=== PATIENT | male | born 1950 | race Caucasian/White ===

== ENCOUNTER → 2016-02-28 | Outpatient (CLI) | payer OTHER, MEDICARE ==
[~2016-02-28] MED LIST: CLX20 PO; SIMV20TA2 PO
--- NOTE | 2016-02-28 18:41 | EXERCISE STRESS ECHO ---
*NOTICE TO RECEIVING LIBERTARIAN AGENCY This information is strictly Confidential and protected under [place] law. [place] law prohibits you from making any further disclosure of this information unless further disclosure is expressly permitted by the written consent of the person to whom it pertains or is authorized by law. A general authorization for the release of medical or other information is not sufficient for this purpose. Hospital accepts no responsibility if the information is made available to any other person, INCLUDING THE PATIENT. Interpretation Summary * Name: ELIZABETH JACOME Study Date: 02/28/2016 10:06 AM BP: 150/104 mmHg * Patient Location: [facility] HR: 67 * : 1950 (M/d/yyyy) Gender: Male Height: 63 in * Age: 65 yrs Ethnicity: CA Weight: 160 lb * Ordering Physician: Kadeem Bell * Referring Physician: Kadeem Bell * Performed By: Suri Marcano RCS * * Reason For Study: Abnormal EKG, Recurrent Left Side Chest Pain * BSA: 1.8 m2 * -- Conclusions -- * 1. Negative exercise stress echo for ischemia at 89% MPHR. * 2. Negative stress ECG for ischemia. * 3. Above average functional capacity. Exercised 7:54 min, achieving 9.9 METS. No exercise induced chest pain. * 4. Normal resting biventricular size and systolic function. Mild concentric LVH. Grade II diastolic dysfunction. * 5. Bicuspid aortic valve with mild-moderate (PV 2.7 m/s, MG 15.7mmHg, EH 1.4 cm2). No AI. Normal aortic root, ascending aorta. * 6. Compared with prior study on 01/31/2014: now mild to moderate. Procedure Details * ECHOEX, CPT #58848 * ECHO COLOR FLOW, CPT #01990 * ECHO DOPPLER, CPT #39102 Left Ventricular Findings with Stress * This was essentially a normal study. Left Ventricle * The left ventricle is grossly normal size. * There is mild concentric left ventricular hypertrophy. * Ejection Fraction = 55-60%. * The left ventricular ejection fraction increases normally with stress. The left ventricular end-systolic cavity size reduces post-stress (normal response). The left ventricular wall motion with stress is normal. * No regional wall motion abnormalities noted. Right Ventricle * The right ventricle is grossly normal size. * The right ventricular systolic function is normal. Atria * The left atrial size is normal. * Right atrial size is normal. * No ASD detected; PFO is not assessed. Mitral Valve * The mitral valve is grossly normal. * There is mild mitral annular calcification. * There is no mitral valve stenosis. * Significant mitral regurgitation is absent. Tricuspid Valve * The tricuspid valve is not well visualized. * Significant tricuspid regurgitation is absent. Aortic Valve * The aortic valve is bicuspid. * AoV mildly calcified, thickened * Mild to moderate valvular aortic stenosis. * AoV PV 2.7 m/s, MG 15.7mmHg, EH 1.4 cm2 * There is no significant aortic regurgitation. Pulmonic Valve * The pulmonic valve is not well visualized. * Trace pulmonic valvular regurgitation. Great Vessels * The aortic root and proximal ascending aorta are normal sized. Pericardium * There is no pericardial effusion. Stress Parameters * Normal baseline electrocardiogram. * Stress ECG: No ST changes. Isolated premature ventricular contractions were present. * Stress ECG: No ST changes. No arrhythmias. * The stress portion of this study was personally supervised by the undersigned interpreting physician. * Rest heart rate was '67' BPM. * Rest blood pressure was '150/104' * Maximum heart rate achieved was 139 bpm. * Maximum heart rate was 89 % of maximum age-predicted heart rate. * Maximum blood pressure was '185/115' * Total exercise time was '7:54' * Maximum exercise MET level achieved was '9.9' METS * Maximum treadmill speed was '3.4' miles per hour. * Maximum treadmill elevation was '14'% grade. * Exercise was terminated due to 'fatigue after achieving target heart rate' Left Ventricular Findings with Stress * The study was technically adequate. Left Ventricular Diastolic Function * Diastolic dysfunction, Grade II (pseudonormalization pattern). MMode 2D Measurements and Calculations IVSd 1.2 cm IVSs 1.6 cm LVIDd 4.8 cm LVIDs 3.4 cm LVPWd 1.2 cm LVPWs 1.6 cm IVS/LVPW 0.98 FS 29.6 % EDV(Teich) 110.0 ml ESV(Teich) 47.9 ml EF(Teich) 56.4 % EDV(cubed) 113.8 ml ESV(cubed) 39.8 ml EF(cubed) 65.0 % % IVS thick 30.4 % % LVPW thick 31.2 % LV mass(C)d 225.1 grams LV mass(C)dI 128.0 grams/m\S\2 LV mass(C)s 204.6 grams LV mass(C)sI 116.3 grams/m\S\2 CO(Teich) 3.8 l/min CI(Teich) 2.2 l/min/m\S\2 SV(Teich) 62.0 ml SI(Teich) 35.3 ml/m\S\2 CO(cubed) 4.6 l/min CI(cubed) 2.6 l/min/m\S\2 SV(cubed) 74.0 ml SI(cubed) 42.1 ml/m\S\2 Ao root diam 3.6 cm Ao root area 10.4 cm\S\2 ACS 1.6 cm LA dimension 3.5 cm LA/Ao 0.96 LVOT diam 2.5 cm LVOT area 5.0 cm\S\2 LVAd ap4 26.1 cm\S\2 LVLd ap4 7.2 cm EDV(MOD-sp4) 80.0 ml LVAs ap4 16.4 cm\S\2 LVLs ap4 6.4 cm ESV(MOD-sp4) 36.0 ml EF(MOD-sp4) 55.0 % LVAd ap2 26.3 cm\S\2 LVLd ap2 8.3 cm EDV(MOD-sp2) 69.0 ml LVAs ap2 14.4 cm\S\2 LVLs ap2 6.4 cm ESV(MOD-sp2) 28.0 ml EF(MOD-sp2) 59.4 % CO(MOD-sp4) 2.7 l/min CI(MOD-sp4) 1.6 l/min/m\S\2 SV(MOD-sp4) 44.0 ml SI(MOD-sp4) 25.0 ml/m\S\2 CO(MOD-sp2) 2.5 l/min CI(MOD-sp2) 1.4 l/min/m\S\2 SV(MOD-sp2) 41.0 ml SI(MOD-sp2) 23.3 ml/m\S\2 Doppler Measurements and Calculations MV E max jarred 86.9 cm/sec MV A max jarred 67.6 cm/sec MV E/A 1.3 MV P1/2t max jarred 90.8 cm/sec MV P1/2t 102.6 msec MVA(P1/2t) 2.1 cm\S\2 MV dec slope 259.2 cm/sec\S\2 MV dec time 0.22 sec Ao V2 max 269.7 cm/sec Ao max PG 29.1 mmHg Ao max PG (full) 27.2 mmHg Ao V2 mean 184.8 cm/sec Ao mean PG 15.7 mmHg Ao mean PG (full) 14.6 mmHg Ao V2 VTI 61.2 cm EH(I,A) 1.4 cm\S\2 EH(I,D) 1.4 cm\S\2 EH(V,A) 1.3 cm\S\2 EH(V,D) 1.3 cm\S\2 LV V1 max PG 1.9 mmHg LV V1 mean PG 1.1 mmHg LV V1 max 69.4 cm/sec LV V1 mean 50.2 cm/sec LV V1 VTI 16.8 cm SV(Ao) 639.4 ml SI(Ao) 363.5 ml/m\S\2 SV(LVOT) 83.3 ml SI(LVOT) 47.4 ml/m\S\2 PA V2 max 175.1 cm/sec PA max PG 12.5 mmHg PI max jarred 219.9 cm/sec PI max PG 19.3 mmHg PI dec slope 194.2 cm/sec\S\2 PI P1/2t 331.6 msec
== END | disposition home or self-care (01) ==
LOC: C.CPL 09:28
PROVIDERS: ATTEND Internal Medicine
DX: R07.9 Chest pain, unspecified (principal); Q23.1 Congenital insufficiency of aortic valve; R94.31 Abnormal electrocardiogram [ECG] [EKG]

== ENCOUNTER → 2016-06-19 | Outpatient (CLI) | payer OTHER, MEDICARE ==
[2016-06-19 15:14] LABS: ALB/GLOB RATIO 1.3 (0.9-2); ALKALINE PHOSPHATASE 92 U/L (45-117); ALT/SGPT 27 U/L (12-78); AST/SGOT 23 U/L (15-37); BLOOD UREA NITROGEN 15 mg/dl (7-18); BUN/CREATININE RATIO 15.4 (10-20); CALCIUM 8.9 mg/dl (8.5-10.1); CARBON DIOXIDE 25 mmol/L (21-32); CHLORIDE 108 mmol/L (98-107); CHOLESTEROL 173 mg/dl (0-200); CHOLESTEROL/HDL RATIO 3.4; GLUCOSE 111 mg/dl (70-99); HDL CHOLESTEROL 51 mg/dl; POTASSIUM 3.5 mmol/L (3.5-5.1); SODIUM 141 mmol/L (136-145); TRIGLYCERIDES 89 mg/dl (0-150); VERY LOW DENSITY LIPOPROT CALC 18 mg/dl
== END | disposition home or self-care (01) ==
LOC: C.LABSPEC 12:34
PROVIDERS: ATTEND Internal Medicine
DX: I25.10 Atherosclerotic heart disease of native coronary artery without angina pectoris (principal); E78.5 Hyperlipidemia, unspecified

== ENCOUNTER → 2016-12-23 | Outpatient (CLI) | payer OTHER, MEDICARE ==
[2016-12-23 13:40] LABS: BLOOD UREA NITROGEN 16 mg/dl (7-18); BUN/CREATININE RATIO 16.3 (10-20); CALCIUM 9.1 mg/dl (8.5-10.1); CARBON DIOXIDE 28 mmol/L (21-32); CHLORIDE 103 mmol/L (98-107); CHOLESTEROL 177 mg/dl (0-200); CREATININE 0.98 mg/dl (0.60-1.40); GLUCOSE 109 mg/dl (70-99); POTASSIUM 4.1 mmol/L (3.5-5.1); SODIUM 138 mmol/L (136-145); TRIGLYCERIDES 74 mg/dl (0-150); VERY LOW DENSITY LIPOPROT CALC 15 mg/dl
[2016-12-23 13:43] LABS: CHOLESTEROL/HDL RATIO 3.2; HDL CHOLESTEROL 55 mg/dl
[2016-12-23 13:54] LABS: ESTIMATED AVERAGE GLUCOSE 94 mg/dl; HA1C FLAG Normal (Normal)
== END | disposition home or self-care (01) ==
LOC: C.LABSPEC 12:05
PROVIDERS: ATTEND Internal Medicine
DX: R73.9 Hyperglycemia, unspecified (principal); I10 Essential (primary) hypertension; E78.5 Hyperlipidemia, unspecified

== ENCOUNTER → 2016-12-24 | Outpatient (CLI) | payer OTHER, MEDICARE | END | disposition home or self-care (01) | LOC: C.LABSPEC 12:24 | PROVIDERS: ATTEND Internal Medicine | DX: Z12.11 Encounter for screening for malignant neoplasm of colon (principal) ==

== ENCOUNTER → 2017-06-19 | Outpatient (CLI) | payer OTHER, MEDICARE ==
[~2017-06-19] MED LIST changes: +OPTIRAY 320 IV PRN
--- NOTE | 2017-06-19 12:02 | DIAGNOSTIC IMAGING REPORT ---
CHEST ANGIO WITH CONTRAST CLINICAL HISTORY: X aneurysm TECHNIQUE: Transaxial acquisition with multi axial reformatted images COMPARISON STUDY: None FINDINGS: Thoracic aorta is normal in course and caliber. There is a trace amount of abscess chronic change. There is no evidence for aneurysm or dissection. Pulmonary vasculature enhances appropriately. Lungs are considered clear. IMPRESSION: Negative study of the thoracic aorta. Lungs are clear. The above report was generated using voice recognition software. It may contain grammatical, syntax or spelling errors. Electronically signed by: Delon Clark M.D. 06/19/2017 12:00 PM Dictated Date/Time: 06/19/2017 11:56 AM
== END | disposition home or self-care (01) ==
LOC: C.CTS 11:26
PROVIDERS: ATTEND Internal Medicine Cardiovascular Disease
DX: Q23.1 Congenital insufficiency of aortic valve (principal)

== ENCOUNTER → 2017-06-20 | Outpatient (CLI) | payer OTHER, MEDICARE ==
[~2017-06-20] MED LIST changes: -OPTIRAY 320 IV PRN
[2017-06-20 12:30] LABS: HEMATOCRIT 46.7 % (42-52); HEMOGLOBIN 16.8 g/dL (14.0-18.0); MEAN CELL VOLUME 85.8 fL (80-100); MEAN CORPUSCULAR HEMOGLOBIN 30.9 pg (25-34); MEAN PLATELET VOLUME 11.3 fL (7.4-10.4); PLATELET COUNT 201 K/uL (130-400); RED CELL DISTRIBUTION WIDTH SD 40.4 fL (36.4-46.3); WHITE BLOOD COUNT 7.86 K/uL (4.8-10.8)
[2017-06-20 13:11] LABS: BLOOD UREA NITROGEN 14 mg/dl (7-18); CALCIUM 8.5 mg/dl (8.5-10.1); CARBON DIOXIDE 30 mmol/L (21-32); CREATININE 1.04 mg/dl (0.60-1.40); GLUCOSE 88 mg/dl (70-99); POTASSIUM 3.9 mmol/L (3.5-5.1); SODIUM 140 mmol/L (136-145)
== END | disposition home or self-care (01) ==
LOC: C.LAB1850 11:28
PROVIDERS: ATTEND Internal Medicine Cardiovascular Disease
DX: I35.0 Nonrheumatic aortic (valve) stenosis (principal); E78.5 Hyperlipidemia, unspecified; R06.09 Other forms of dyspnea; Q23.1 Congenital insufficiency of aortic valve; I20.9 Angina pectoris, unspecified; I10 Essential (primary) hypertension

== ENCOUNTER → 2017-06-25 | Day surgery (SDC) | payer OTHER, MEDICARE ==
[~2017-06-25] VITALS: Ht 160 cm; Wt 75.0 kg
[~2017-06-25] MED LIST changes: +ACETAMINOPHEN 325 MG TAB PO PRN; +ALFA250T; +AMLO2.5T PO; +ASPCH81X PO; +ASPIRIN 325 MG ECTAB PO ONE; +DIPH1TAB98; +FENTANYL CITRATE INJ 50 MCG/1 ML 2 ML VIAL ONE; +HEPARIN SOD (PORCINE) 1000 UNIT/ML 10 ML VIAL ONE; +HYDR25TA4 PO; +LPT40 PO; +METO50TA8 PO; +METOPROLOL SUCC 25MG EXT REL TAB ONE; +MIDAZOLAM HCL 1 MG/ML 2ML VIAL ONE; +NITROGLYCERIN/D5W 100MCG/ML 20ML SYR ONE; +NTRGSL/4 UT; +NiCARDipine HCL INJ 2.5 MG/ML 10 ML AMP ONE; +ONDANSETRON INJ 2 MG/ML 2 ML VIAL IV PRN; +SODIUM CHLORIDE 0.9% 1000ML 1,000 ML IV SCH; +SODIUM CHLORIDE 0.9% 1000ML 250 ML IV PRN
[2017-06-25 07:47] VITALS: BP 190/100; PULSE 72; TEMP 37; O2SAT 96; Ht 160 cm; Wt 75.0 kg
--- NOTE | 2017-06-25 08:00 | History & Physical Bridge Note ---
H&P Re-Evaluation Bridge Note: I have examined the patient, reviewed the History & Physical and in the interval since the performance of the History & Physical I have noted the following changes of clinical significance: No changes noted
--- NOTE | 2017-06-25 08:06 | Pre Sedation Assessment ---
Pre Sedation Assessment General Date of Sedation: June 25, 2017. Vital Signs Past 12 Hours Date Time Temp Pulse Resp B/P (MAP) Pulse Ox O2 Delivery O2 Flow Rate FiO2 06/25/18 07:47 37.0 72 16 190/100 (130) 96 Room Air Review Cardiovascular: regular rate, rhythm, + systolic murmur Lungs: lungs clear Pre-Sedation Airway Assessment Smoking Status: Never Smoker Hx of Sleep Apnea: No Short Thick Neck: No Oral Cavity: WNL Mallampati Classification: Class III ASA Classification: Class III NPO Status Date of Last Intake of Fluids: June 24, 2017 Time of Last Intake of Fluids: 20:00 Date of Last Intake of Solids: June 24, 2017 Time of Last Intake of Solids: 20:00 Procedure Planning Contraindications for Sedation: None Current Medications Reviewed: Yes Notes The planned sedation has been discussed with the patient. Informed Consent was obtained. I have identified the patient, determined the appropriateness of sedation and have assessed the patient immediately prior to the procedure. All medicine(s) and interventions are by my order.
--- NOTE | 2017-06-25 09:25 | Post Sedation Assessment ---
Post Sedation Assessment General Date of Sedation June 25, 2017. Vital Signs: Vital Signs Past 12 Hours Date Time Temp Pulse Resp B/P (MAP) Pulse Ox O2 Delivery O2 Flow Rate FiO2 06/25/ 07:47 37.0 72 16 190/100 (130) 96 Room Air Post Procedure Recovery Score Activity: (2) Moves 4 extremities * Respiration: (2) Deep breath/cough Circulation: (2) +/-20% PreAnes Value Consciousness: (2) Fully Awake Oxygen Saturation: (2) > 92% On Room Air Post Anesthesia Score: 10 Discharge Sedation Level of Care: Fast Track Phase II Post Sedation Plan On clinical assessment, the patient appears to have tolerated the sedation without complications. Patient is recovering as anticipated. Patient will continue to be monitored by nursing and may be discharged when sedation discharge criteria are met per below protocol. Upon Completions of procedure and additional 15 minutes continue every 5 minute vital signs and the P.A.R. score; then discharge to a Phase I or Fast Track to Phase II per the following guidelines: * Discharge Patient to appropriate Phase II area if PAR is 8 or greater or return to pre- procedure baseline. The post - procedure orders will be as directed. * If PAR score is less than 8 or not return to pre-procedure baseline then patient will follow Phase I monitoring till PAR is reached for Phase II. The Phase I may be done in procedure room or may call to secure a Phase I area. * If naloxone or flumazenil are used for reversal, hold in Phase I for an additional 60 -120 minutes before discharge to Phase II. Please call the Sedation Physician to re-evaluate and complete post-note for discharge to Phase II area. Do NOT discharge from procedure sedation or Phase 1 until post- sedation evaluation note is complete by procedure /sedation MD Sedation Discharge Instructions to be given to the patient at discharge to home.
--- NOTE | 2017-06-25 09:25 | Cardiac Catheterization ---
Procedure Note Procedure Date June 25, 2017. Pre-Procedure Diagnosis Angina AUC Score 7 Post-Procedure Diagnosis Mild CAD, Elevated Intracardiac Pressures Procedure(s) Performed Coronary Angiography, Left Heart Cath Network Support Analyst Dr. Peraza Embryology Professor(s) Contino Estimated Blood Loss < 25 ml Medication(s) Fentanyl, Heparin, Nicardipine, Versed, Lidocaine 1% Summary of Findings Coronary angiography: 1. Left main coronary artery: No significant CAD noted. 2. Left anterior descending: The LAD is a large caliber vessel that wraps around the apex. Mid LAD 20%. Small to medium caliber D1 (< 2 mm vessel) with ostial narrowing of 50%. Very small caliber D2. Small caliber D3 the. 3. Circumflex: The circumflex is a medium to large caliber vessel. It gives rise to a very large caliber OM1. Small caliber OM2. Small caliber OM3. No significant CAD noted within the circumflex system. 4. Right coronary artery: The RCA is a large caliber, dominant vessel. Distal luminal irregularities, approximately 20%. It gives rise to a a large caliber PDA and a medium caliber PL without significant CAD. Left heart catheterization: 1. Left ventriculography was not performed. 2. Elevated LVEDP; 27mmHg. 3. Peak to peak transvalvular aortic gradient was 0mmHg, however echo demonstrated mild to moderate aortic stenosis. Sedation start time: 8:21 a.m. Sedation end time: 8:40 a.m. Procedural details: 1. Coronary angiography was performed via the right radial artery with 6 Wallisian JL 3.5 diagnostic catheter and 6 Wallisian JR4 diagnostic catheter to engage the LMCA and RCA, respectively. Impression: 1. 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 2. Elevated LVEDP (27 mmHg). 3. No significant aortic stenosis suggested on transvalvular peak to peak aortic gradient. Plan: 1. Consider diuretic. 2. Optimize blood pressure. 3. Risk factor modification. Hemodynamics Rest Ao: 155/82 Final Ao: 170/82 LV: 161/14/27 Recommendations Medical therapy and/or Counseling Specimens None Radiation Exposure (mGy) 1211 mGy. Fluoro time 5.8 min. Contrast (mls) 40 ml optivol Procedural Complication(s) None Disposition Traveling Sales Representative Holding/Recovery ACC Data Cardiac Status Clinical evaluation leading to the procedure CAD Presntation: Stable angina Anginal Classification: CCS III Heart Failure: No Cardiogenic Shock w/in 24Hrs: No Cardiac Arrest w/in 24Hrs: No Imaging studies past 6 months: Yes (echo) Stress studies past 6 months: No Standard Exercise Stress Test: No Stress Echocardiogram: No Stress Testing w/SPECT MPI: No Cardiac CTA: No Coronary Anatomy Dominant: Right Left Main (% Stenosis): Normal LAD (% Stenosis): Mid (20%) D1 (% Stenosis): Ostial (50%) D2 (% Stenosis): Normal D3 (% Stenosis): Normal Circumflex (% Stenosis): Normal OM1 (% Stenosis): Normal OM2 (% Stenosis): Normal OM3 (% Stenosis): Normal RCA (% Stenosis): Distal (20%) R PDA (% Stenosis): Normal R PL1 (% Stenosis): Normal Left Ventricular Angiography EF (%): n/a Diagnostic Physician's Name: Virgilio Peraza MD Status: Elective Closure Device Percutaneous Entry Location: Radial Closure Device: Radial Band Recommendations: Medical therapy and/or Counseling
--- NOTE | 2017-06-25 09:44 | Discharge Instructions ---
Discharge Instructions Date of Service June 25, 2017. Visit Reason for Visit: Cardiac catheterization to evaluate shortness of breath and chest pain. Discharge Discharge Diagnosis / Problem: 1. Nonobstructive coronary artery disease. Discharge Goals Goal(s): Diagnostic testing Activity Recommendations Activity Limitations: per Instructions/Follow-up section Anesthesia . Post Anesthesia Instructions: If you have had General Anesthesia or IV Sedation: * Do not drive today. * Resume driving when surgeon permits. * Do not make important decisions or sign legal documents today. * Call surgeon for: 1. Temperature elevations greater than 101 degrees F. 2. Uncontrollable pain. 3. Excessive bleeding. 4. Persistent nausea and vomiting. 5. Medication intolerance (nausea, vomiting or rash). * For nausea and vomiting use only clear liquids such as: tea, soda, bouillon until nausea subsides, then gradually increase diet as tolerated. * If you have any concerns or questions, call your surgeon's office. If physician is unavailable and it is an emergency, call 911 or go to the nearest emergency room. . Instructions / Follow-Up Instructions / Follow-Up Please have labs done in 5-7 days. Follow up with Dr. Peraza in approximately 1 month. His office will contact you with time/date of appointment. ACTIVITY RECOMMENDATIONS: Excess manipulation of the wrist should be avoided for the next 24-48 hours. * No lifting over 2 pounds (approximately a 1/2 gallon of milk) with the utilized arm for 24 hours. * No strenuous activity such as bowling or tennis for 3 days. * Keep the site of the procedure covered with a bandage for 24 hours. *You may shower the day after the procedure. Do not take a tub bath or submerge the puncture site in water for the next 3 days. *Do not operate any motorized equipment for 3 days. SPECIAL CARE INSTRUCTIONS: The site may be slightly bruised and sore following your procedure. Should any of the following occur, contact the Dr. who performed your procedure. 1. Redness/inflammation, swelling, chills, or fever, or colored drainage at procedure site within 3-7 days after your procedure. 2. Coldness, discoloration, ongoing numbness, severe pain, or swelling. Expect mild tingling of hand and tenderness at the puncture site for up to three days. If this persists beyond three days, or other symptoms develop, notify the Dr. who performed your procedure. BLEEDING: If the procedure site on your wrist begins to bleed, do not panic 1. Place 1 or 2 fingers firmly just slightly above the insertion site to stop the bleeding. You may be able to feel your pulse as you hold pressure. 2. Lift your finger after 5 minutes to see if the bleeding has stopped. 3. Once the bleeding has stopped, gently wipe the wrist area clean with a bandage. * If the bleeding from your wrist does not stop after 10 minutes, or if there is a large amount of bleeding or spurting, call 911 ([address] drive yourself to the hospital). SKIN IRRITATION: * You may experience some redness and/or swelling in the area where radiation was administered. If any skin irritation occurs, please contact your family physician. FOLLOW UP VISIT: Keep any scheduled doctor appointments. Diet Recommendations Recommended Home Diet: low sodium Procedures Procedures Performed: 1. Coronary angiography and left heart catheterization Pending Studies Studies pending at discharge: no Medical Emergencies . Who to Call and When: Medical Emergencies: If at any time you feel your situation is an emergency, please call 911 immediately. . Non-Emergent Contact Non-Emergency issues call your: [facility] . . "Provider Documentation" section prepared by Virgilio Miranda. .
[2017-06-25 11:20] VITALS: BP 122/60; PULSE 66; O2SAT 98
== END | disposition home or self-care (01) ==
LOC: C.CATH 07:39
PROVIDERS: ATTEND Internal Medicine Cardiovascular Disease
DX: I25.119 Atherosclerotic heart disease of native coronary artery with unspecified angina pectoris (principal); R06.09 Other forms of dyspnea; Q23.1 Congenital insufficiency of aortic valve; F39 Unspecified mood [affective] disorder; E78.5 Hyperlipidemia, unspecified; I10 Essential (primary) hypertension; Z79.82 Long term (current) use of aspirin; Z87.891 Personal history of nicotine dependence

== ENCOUNTER → 2017-06-30 | Outpatient (CLI) | payer OTHER, MEDICARE ==
[~2017-06-30] MED LIST changes: -ACETAMINOPHEN 325 MG TAB PO PRN; -ASPIRIN 325 MG ECTAB PO ONE; -CLX20 PO; -FENTANYL CITRATE INJ 50 MCG/1 ML 2 ML VIAL ONE; -HEPARIN SOD (PORCINE) 1000 UNIT/ML 10 ML VIAL ONE; -METOPROLOL SUCC 25MG EXT REL TAB ONE; -MIDAZOLAM HCL 1 MG/ML 2ML VIAL ONE; -NITROGLYCERIN/D5W 100MCG/ML 20ML SYR ONE; -NiCARDipine HCL INJ 2.5 MG/ML 10 ML AMP ONE; -ONDANSETRON INJ 2 MG/ML 2 ML VIAL IV PRN; -SIMV20TA2 PO; -SODIUM CHLORIDE 0.9% 1000ML 1,000 ML IV SCH; -SODIUM CHLORIDE 0.9% 1000ML 250 ML IV PRN
[2017-06-30 11:37] LABS: BLOOD UREA NITROGEN 16 mg/dl (7-18); CALCIUM 8.9 mg/dl (8.5-10.1); CARBON DIOXIDE 28 mmol/L (21-32); CREATININE 1.19 mg/dl (0.60-1.40); GLUCOSE 100 mg/dl (70-99); POTASSIUM 3.9 mmol/L (3.5-5.1); SODIUM 139 mmol/L (136-145)
== END | disposition home or self-care (01) ==
LOC: C.LAB1850 09:01
PROVIDERS: ATTEND Internal Medicine Cardiovascular Disease
DX: E78.5 Hyperlipidemia, unspecified (principal); R06.09 Other forms of dyspnea; Q23.1 Congenital insufficiency of aortic valve; I20.9 Angina pectoris, unspecified; I10 Essential (primary) hypertension

== ENCOUNTER → 2017-07-03 | Outpatient (CLI) | payer OTHER, MEDICARE | END | disposition home or self-care (01) | LOC: C.RC 10:03 | PROVIDERS: ATTEND Internal Medicine | DX: R06.02 Shortness of breath (principal); R06.2 Wheezing; Z77.090 Contact with and (suspected) exposure to asbestos; Z87.891 Personal history of nicotine dependence ==

== ENCOUNTER 2022-06-11 18:15 | Observation (INO) ==
--- NOTE | 2022-06-11 18:35 | Emergency Department Note ---
Impression & Plan Chest pain, Elevated troponin I level ED Provider Note NAME: ELIZABETH JACOME AGE: 71 SEX: M : 1950 ARRIVES VIA: Ambulance INFORMANT: Patient, EMS personnel ED PROVIDER(S): Vasu Oliva DO CHIEF COMPLAINT: Back pain HPI: The patient is a 71-year-old male who presented to the emergency department by ambulance for an evaluation of back pain. The patient has taken his own nitroglycerin for this back pain. He thought it could be related to his heart. The patient has a history of aortic valve replacement because of bicuspid aortic valve. He had a heart catheterization done at that time. He has no history of stenting but has nitroglycerin for diagnosed coronary artery disease. He took his own nitroglycerin prior to arrival. He was given aspirin 324 by the prehospital personnel. I did receive a prehospital notification about this patient. To review an EKG. The patient at this time states his pain is significantly improved. He was given 1 dose of nitroglycerin because of recurrent pain. He states the pain is in his upper back. He goes to his left shoulder. He denies having any nausea or vomiting. He denies having any abdominal pain or lower extremity pain at this time. ROS: See above HPI for pertinent positives & negatives. A total of 10 systems reviewed and were otherwise negative. PAST MEDICAL HISTORY: See Below PAST SURGICAL HISTORY: See Below FAMILY HISTORY: See Below SOCIAL HISTORY: See Below HOME MEDICATIONS: See Below ALLERGIES: See Below VITALS: See Below PHYSICAL EXAMINATION: GENERAL: Patient is awake alert in no acute distress patient is resting comfortably and showing no signs of anxiety EYES: The conjunctivae are clear. The pupils are round and reactive. EARS, NOSE, MOUTH AND THROAT: The nose is without any evidence of any deformity. NECK: The neck is nontender and supple. RESPIRATORY: Normal respiratory effort is noted there is no evidence of wheezing rhonchi or rales CARDIOVASCULAR: Regular rate and rhythm noted there no murmurs rubs or gallops normal S1 normal S2. GASTROINTESTINAL: The abdomen is soft. Abdomen is nontender. MUSCULOSKELETAL/EXTREMITIES: There is no evidence of gross deformity full range of motion is noted in the hips and shoulders. SKIN: There is no pedal edema or calf tenderness. Pulses are symmetric in both wrist. NEUROLOGIC: Patient is awake alert and oriented x3 MEDICAL DECISION MAKING: The patient is a 71-year-old male who presented to the emergency department for an evaluation of chest pain. The patient has a history of coronary artery disease although he states that he had a previous cardiac catheterization and no stenting was done at that time. The patient did take his own nitroglycerin at home with significant improvement of his symptoms. The patient arrived via ALS. He was treated with nitroglycerin as well as aspirin prior to arrival. Upon arrival to the emergency department his pain was significantly proved. I discussed the patient's laboratory and radiographic studies with him. I also discussed the limitations of the emergency department work-up for chest pain with him. Ultimately he did have serial troponin measurements. Given his history of bicuspid aortic valve CT was obtained to rule out dissection. The patient was having back pain. I did discuss the patient's [facility] They have agreed to evaluate the patient in the emergency department. Triage Nursing notes reviewed. Prior medical records reviewed Vital Signs: reviewed and remarkable for hypertension Differential diagnosis: Cardiac ischemia, aortic dissection, pulmonary embolism, pneumothorax, pneumonia, pericarditis, myocarditis, esophageal rupture, GERD, cholecystitis, pancreatitis, musculoskeletal, as well as other pathologies. ER treatment provided: See below Diagnostics interpreted by me: ECG: EKG was obtained in the emergency department. My interpretation is sinus rhythm at 76 bpm. PVCs were noted. Ectopic atrial beats were noted. Nonspecific ST depressions were noted in the lateral leads. This was compared to a tracing from May 23, 2020. No significant changes were noted. Cardiac Monitoring: An order was placed for continuous cardiac monitoring. The monitor shows a rate of 76 bpm with sinus rhythm. Laboratory studies: As stated above and show below. Imaging studies: See below. Radiographic imaging was reviewed by myself Consultation(s): I discussed this case with Dr. Horne who is [facility] ED COURSE: The patient was placed in observation status at 1820. The patient presented for chest pain and I felt he required a chest pain rule out and work-up. During the time in observation, the patient was frequently reassessed and received serial troponin measurements.. On Final reassessment the patient the patient did have a slight increase in his troponin compared to his initial. And the patient will be evaluated by the hospitalist for inpatient management at this time. A total observation time of 2 hours. Past Med/Surg History Medical History Aortic stenosis Asthma (09/29/12) Bicuspid aortic valve CAD (coronary artery disease) Dyslipidemia Hypertension Junctional rhythm Paroxysmal atrial fibrillation SVT (supraventricular tachycardia) Umbilical hernia (09/29/12) Surgical History History of surgery on arm Right bicep tendon repair. S/P TAVR (transcatheter aortic valve replacement) Family History Father Cancer Mother Asthma Coronary heart disease Diabetes Heart disease Hypertension Stroke Denies family history of Sudden Alzheimer disease Bipolar disorder Myocardial infarction Breast cancer Schizophrenia Lung cancer COPD (chronic obstructive pulmonary disease) Colorectal cancer Lung disease Social History Smoking Status: Former smoker Tobacco Type: Cigarettes Age Started Using Tobacco: 18; Age Quit Using Tobacco: 48; Second Hand Exposure: Yes; Do You Dip or Chew Tobacco: No; Hx Alcohol Use: Yes Alcohol type: beer Alcohol Intake Frequency: 2-3 x/Week Hx Substance Use: No Preferred Language: Yi Communication Ability: Effective Visual Impairment: Limited Hearing Ability: Hard of Hearing Senior Program Analyst Required: No Beliefs That Will Affect Care: None marital status: Current Living Situation: Spouse current occupational status: employed and retired 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 [employer] How many Children do You have: 2 How many Children do You have Comment: 2 sons Feels Safe at Home: Yes Childhood Exposure to Second-Hand Smoke: Yes (mother was a smoker.) Diet: regular caffeine: Yes (coffee ) during the past year weight has: remained stable Dental Care, Regularly: Yes Physical Activity Frequency: Daily Seatbelt Use: always Sunscreen Use: No Do you think of yourself as: straight/heterosexual Gender Identity: Male Assistive Devices: Glasses and Hearing Aid - Bilateral Allergies Allergies Allergy/AdvReac Type Severity Reaction Status Date / Time carisoprodol Allergy Mild Verified 06/05/22 09:52 codeine Allergy Unknown ITCHY Verified 06/05/22 09:52 rosuvastatin Allergy Unknown Nausea Verified 06/05/22 09:52 Home Meds Previous Rx's Medication Instructions Recorded nitroglycerin 0.4 mg sublingual 0.4 mg sublingual Q5M PRN Chest 02/23/20 tablet Pain #25 tabs rosuvastatin 20 mg tablet 20 mg PO DAILY #90 tabs 09/29/21 apixaban 5 mg tablet (Eliquis) 5 mg PO BID #180 tabs 10/08/21 diltiazem HCl 180 mg 180 mg PO DAILY #90 caps 12/05/21 capsule,extended release 24 hr hydrochlorothiazide 25 mg tablet 25 mg PO DAILY #90 tabs 12/14/21 amoxicillin 500 mg capsule 2,000 mg PO .COMPLEX #4 caps 02/28/22 sildenafil 100 mg tablet (Viagra) 100 mg PO DAILY PRN sexual 03/01/22 activity #30 tabs Results & Data (ED) Vital Signs Vital Signs - 24 hr 06/11/22 18:22 06/11/22 18:22 06/11/22 18:45 Temperature 36.7 C 36.7 C Temperature Source Oral Oral Pulse Rate 69 Pulse Rate [Apical] 69 Pulse Rhythm [Apical] Regular Pulse Strength Normal Respiratory Rate 18 18 Respiratory Effort / Characteristics Non-Labored Spontaneous Non-Labored Spontaneous Respiratory Depth Normal Normal Respiratory Pattern Regular Regular Blood Pressure 138/78 Blood Pressure [Right Arm] 138/78 Blood Pressure Mean 98 Blood Pressure Mean [Right Arm] 98 Blood Pressure Position Lying Blood Pressure Position [Right Arm] Lying Pulse Oximetry 95 95 95 Oxygen Delivery Method Room Air Room Air Room Air Sepsis Recent Fever Within 48 Hours No Sepsis New/Unexplained Change in Mental Status No Sepsis Action Taken by Nursing No Action Required 06/11/22 21:13 06/11/22 18:29 06/11/22 22:26 Temperature Temperature Source Pulse Rate 67 76 Pulse Rate [Apical] 60 Pulse Rhythm [Apical] Pulse Strength Respiratory Rate 18 Respiratory Effort / Characteristics Respiratory Depth Respiratory Pattern Blood Pressure Blood Pressure [Right Arm] 159/73 H Blood Pressure Mean Blood Pressure Mean [Right Arm] 101 Blood Pressure Position Blood Pressure Position [Right Arm] Pulse Oximetry 96 Oxygen Delivery Method Room Air Sepsis Recent Fever Within 48 Hours Sepsis New/Unexplained Change in Mental Status Sepsis Action Taken by Residential Medications Current Medication List: was personally reviewed by me Laboratory Data Attestation: I reviewed the patient's lab results. 06/11/22 18:20 06/11/22 18:20 Lab Results 06/11/22 06/11/22 06/11/22 Range/Units 18:20 18:20 18:20 WBC 7.49 (4.8-10.8) K/ul RBC 4.87 (4.70-6.10) M/uL Hgb 15.4 (14.0-18.0) g/dl Hct 41.6 L (42.0-52.0) % MCV 85.4 (80.0-100.0) fL MCH 31.6 (25.0-34.0) pg MCHC 37.0 H (32.0-36.0) g/dL RDW Std Deviation 41.9 (36.4-46.3) fL RDW Coeff of Luh 13.5 (11.5-14.5) % Plt Count 187 (130-400) K/uL MPV 10.9 (9.4-12.4) fL Immature Gran % (Auto) 0.5 % Neut % (Auto) 67.7 % Lymph % (Auto) 16.8 % [place] % (Auto) 12.3 % Eos % (Auto) 2.4 % Baso % (Auto) 0.3 % Neut # (Auto) 5.07 (1.40-6.50) K/uL Lymph # (Auto) 1.26 (1.2-3.4) K/uL [place] # (Auto) 0.92 H (0.11-0.59) K/uL Eos # (Auto) 0.18 (0-0.50) K/uL Baso # (Auto) 0.02 (0-0.2) K/uL Immature Gran # (Auto) 0.04 (0.01-0.20) K/uL PT 11.4 (9.0-12.0) Seconds INR 1.0 (0.9-1.1) APTT 27.2 (21.0-31.0) Seconds PTT Ratio 1.0 D-Dimer 300 (0-500) ug/L FEU Sodium 139 (136-145) mmol/L Potassium 3.3 L (3.5-5.1) mmol/L Chloride 104 (98-107) mmol/L Carbon Dioxide 28 (21-32) mmol/L Anion Gap 7 (3-11) BUN 14 (6-23) mg/dl Creatinine 0.91 (0.6-1.4) mg/dl Est Cr Clr Drug Dosing 69.0 ml/min Est GFR ( Amer) 97.9 ml/min Est GFR (Non-Af Amer) 84.5 ml/min BUN/Creatinine Ratio 15.4 (10-20) Glucose 88 (70-99(Fasting)) mg/dl Calcium 9.2 (8.6-10.3) mg/dl Total Bilirubin 1.0 (0.2-1.0) mg/dl AST 26 (13-39) U/L ALT 24 (7-52) U/L Alkaline Phosphatase 78 (34-104) U/L Troponin I High Sens 20.3 H (0-20) pg/ml Total Protein 6.8 (6.0-8.3) gm/dl Albumin 4.3 (3.4-5.0) gm/dl Globulin 2.5 (2.5-4.0) gm/dl Albumin/Globulin Ratio 1.7 (0.9-2) Lipase 123 H (11-82) U/L SARS-CoV-2, RNA, NAAT (NEGATIVE) 06/11/22 06/11/22 06/11/22 Range/Units 18:23 20:22 21:20 WBC (4.8-10.8) K/ul RBC (4.70-6.10) M/uL Hgb (14.0-18.0) g/dl Hct (42.0-52.0) % MCV (80.0-100.0) fL MCH (25.0-34.0) pg MCHC (32.0-36.0) g/dL RDW Std Deviation (36.4-46.3) fL RDW Coeff of Ulh (11.5-14.5) % Plt Count (130-400) K/uL MPV (9.4-12.4) fL Immature Gran % (Auto) % Neut % (Auto) % Lymph % (Auto) % [place] % (Auto) % Eos % (Auto) % Baso % (Auto) % Neut # (Auto) (1.40-6.50) K/uL Lymph # (Auto) (1.2-3.4) K/uL [place] # (Auto) (0.11-0.59) K/uL Eos # (Auto) (0-0.50) K/uL Baso # (Auto) (0-0.2) K/uL Immature Gran # (Auto) (0.01-0.20) K/uL PT (9.0-12.0) Seconds INR (0.9-1.1) APTT (21.0-31.0) Seconds PTT Ratio D-Dimer Cancelled (0-500) ug/L FEU Sodium (136-145) mmol/L Potassium (3.5-5.1) mmol/L Chloride (98-107) mmol/L Carbon Dioxide (21-32) mmol/L Anion Gap (3-11) BUN (6-23) mg/dl Creatinine (0.6-1.4) mg/dl Est Cr Clr Drug Dosing ml/min Est GFR ( Amer) ml/min Est GFR (Non-Af Amer) ml/min BUN/Creatinine Ratio (10-20) Glucose (70-99(Fasting)) mg/dl Calcium (8.6-10.3) mg/dl Total Bilirubin (0.2-1.0) mg/dl AST (13-39) U/L ALT (7-52) U/L Alkaline Phosphatase (34-104) U/L Troponin I High Sens 22.7 H (0-20) pg/ml Total Protein (6.0-8.3) gm/dl Albumin (3.4-5.0) gm/dl Globulin (2.5-4.0) gm/dl Albumin/Globulin Ratio (0.9-2) Lipase (11-82) U/L SARS-CoV-2, RNA, NAAT NEGATIVE (NEGATIVE) Administered Medications Discontinued Medications Ioversol (Optiray 320 500ml) 114 ml IV ONCE ONE Stop: 06/11/22 20:33 Last Admin: 06/11/22 20:35 Dose: 114 ml Documented By: IVANA Imaging Data Attestation: I personally reviewed and interpreted this imaging study as follows: My Impression: 1 view chest x-ray was obtained in the emergency department. My interpretation is no definite infiltrate, no free air. Final report below. Radiologist's Impression: Chest X-Ray 06/11/22 18:23 SINGLE VIEW CHEST CLINICAL HISTORY: Atypical chest pain. FINDINGS: An AP, portable, upright chest radiograph is compared to study dated 05/23/2020. There is evidence of previous cardiac valve surgery. The the heart is enlarged noting atherosclerotic calcification of the thoracic aorta. The pulmonary vasculature is noncongested. The lungs and pleural spaces are clear noting bibasilar scarring/atelectasis. No pneumothorax is seen. The skeletal structures are osteopenic. The bony thorax is grossly intact. A surgical anchor projects over the right humeral shaft. IMPRESSION: Cardiomegaly with no acute cardiopulmonary abnormality. ACT 112: Negative or not required by law. Electronically signed by: Adam Manley M.D. 06/11/2022 6:48 PM Chest CTA 06/11/22 20:12 Exam(s): CTA CHEST W/WO Contrast IV Amt: 114ml optiray 320 EXAM: CT Angiography Chest Without and With Intravenous Contrast CLINICAL HISTORY: Reason for exam: CP. TECHNIQUE: Axial computed tomographic angiography images of the chest without and with intravenous contrast. Automated exposure control was utilized for the study. A dose lowering technique was utilized adhering to the principles of ALARA. MIP reconstructed images were created and reviewed. CONTRAST: Patient received 114ml optiray 320 of IV contrast COMPARISON: No relevant prior studies available. FINDINGS: Pulmonary arteries: Unremarkable. No pulmonary embolism. Aorta: No intramural hematoma, aneurysm, or dissection of the thoracic aorta. Lungs: Unremarkable. No mass. No consolidation. Pleural space: Unremarkable. No focal infiltrate, pleural effusion, or pneumothorax. Heart: Prosthetic aortic valve. No significant pericardial effusion. No evidence of RV dysfunction. Bones/joints: No acute fracture. No dislocation. Soft tissues: Unremarkable. Lymph nodes: Unremarkable. No enlarged lymph nodes. IMPRESSION: No intramural hematoma, aneurysm, or dissection of the thoracic aorta. Prosthetic aortic valve. No focal infiltrate, pleural effusion, or pneumothorax. Electronically signed by: Malcolm Banks MD 06/11/22 21:17 PM Discharge Plan Visit Data Chief Complaint: Cardiac Assessment Stated Complaint: SHOULDER PAIN INTO NECK ED Provider: Vasu Oliva Discharge Problem: Chest pain, Elevated troponin I level Patient Disposition: Being Evaluated by Hospitalist Forms Stand Alone Forms: [facility] [place] [employer] Prescriptions Prescriptions: No Action rosuvastatin 20 mg tablet 20 mg PO DAILY Qty: 90 3RF Eliquis 5 mg tablet 5 mg PO BID Qty: 180 3RF diltiazem HCl 180 mg capsule,extended release 24hr 180 mg PO DAILY Qty: 90 3RF hydrochlorothiazide 25 mg tablet 25 mg PO DAILY Qty: 90 3RF amoxicillin 500 mg capsule 2,000 mg PO .COMPLEX Qty: 4 3RF Rx Instructions: 2,000 mg orally 30-60 minutes prior to dental procedure; sildenafil [Viagra] 100 mg tablet 100 mg PO DAILY PRN (Reason: sexual activity) Qty: 30 5RF Rx Instructions: administer 30 minutes to 4 hours before activity nitroglycerin 0.4 mg tablet, sublingual 0.4 mg SL Q5M PRN (Reason: Chest Pain) Qty: 25 0RF Referrals Referrals: Noman Victor DO [Primary Care Provider] -
--- NOTE | 2022-06-11 18:50 | XRay Report ---
SINGLE VIEW CHEST CLINICAL HISTORY: Atypical chest pain. FINDINGS: An AP, portable, upright chest radiograph is compared to study dated 05/23/2020. There is ev idence of previous cardiac valve surgery. The the heart is enlarged noting atherosclerotic calcificat ion of the thoracic aorta. The pulmonary vasculature is noncongested. The lungs and pleural spaces ar e clear noting bibasilar scarring/atelectasis. No pneumothorax is seen. The skeletal structures are o steopenic. The bony thorax is grossly intact. A surgical anchor projects over the right humeral shaft . IMPRESSION: Cardiomegaly with no acute cardiopulmonary abnormality. ACT 112: Negative or not required by law. Electronically signed by: Adam Manley M.D. 06/11/2022 6:48 PM
[2022-06-11 18:51] LABS: Basophils # (auto) 0.02 K/uL (0-0.2); Basophils % (auto) 0.3 %; Eosinophils # (auto) 0.18 K/uL (0-0.50); Eosinophils % (auto) 2.4 %; Hematocrit (blood only) 41.6 % (42.0-52.0); Hemoglobin 15.4 g/dl (14.0-18.0); Immature Granulocytes # (auto) 0.04 K/uL (0.01-0.20); Immature Granulocytes % (auto) 0.5 %; Lymphocytes # (auto) 1.26 K/uL (1.2-3.4); Lymphocytes % (auto) 16.8 %; Mean Corpuscular Hemoglobin 31.6 pg (25.0-34.0); Mean Corpuscular Volume 85.4 fL (80.0-100.0); Mean Platelet Volume 10.9 fL (9.4-12.4); Monocytes # (auto) 0.92 K/uL (0.11-0.59); Monocytes % (auto) 12.3 %; Neutrophils # (auto) 5.07 K/uL (1.40-6.50); Neutrophils % (auto) 67.7 %; Platelet Count 187 K/uL (130-400); RDW Coefficient of Variation 13.5 % (11.5-14.5); RDW Standard Deviation 41.9 fL (36.4-46.3); Red Blood Count 4.87 M/uL (4.70-6.10); White Blood Count 7.49 K/ul (4.8-10.8)
[2022-06-11 19:08] LABS: Albumin Globulin Ratio 1.7 (0.9-2); Albumin Level 4.3 gm/dl (3.4-5.0); BUN Creatinine Ratio 15.4 (10-20); Calcium 9.2 mg/dl (8.6-10.3); Est GFR (African American) 97.9 ml/min; Est GFR (Non-African American) 84.5 ml/min; Globulin 2.5 gm/dl (2.5-4.0); Potassium 3.3 mmol/L (3.5-5.1); Total Protein 6.8 gm/dl (6.0-8.3)
[2022-06-11 19:15] LABS: Troponin I High Sensitivity 20.3 pg/ml (0-20)
[2022-06-11 19:23] LABS: D Dimer 300 ug/L FEU (0-500); Partial Thromboplastin Time 27.2 Seconds (21.0-31.0); Prothrombin Time 11.4 Seconds (9.0-12.0)
[2022-06-11] MEDS ORDERED: OPTIRAY 320 500ml IV ONE (20:32)
--- NOTE | 2022-06-11 21:18 | CT Scan Report ---
Exam(s): CTA CHEST W/WO Contrast IV Amt: 114ml optiray 320 EXAM: CT Angiography Chest Without and With Intravenous Contrast CLINICAL HISTORY: Reason for exam: CP. TECHNIQUE: Axial computed tomographic angiography images of the chest without and with intravenous contrast. Automated exposure control was utilized for the study. A dose lowering technique was utilized adhering to the principles of ALARA. MIP reconstructed images were created and reviewed. CONTRAST: Patient received 114ml optiray 320 of IV contrast COMPARISON: No relevant prior studies available. FINDINGS: Pulmonary arteries: Unremarkable. No pulmonary embolism. Aorta: No intramural hematoma, aneurysm, or dissection of the thoracic aorta. Lungs: Unremarkable. No mass. No consolidation. Pleural space: Unremarkable. No focal infiltrate, pleural effusion, or pneumothorax. Heart: Prosthetic aortic valve. No significant pericardial effusion. No evidence of RV dysfunction. Bones/joints: No acute fracture. No dislocation. Soft tissues: Unremarkable. Lymph nodes: Unremarkable. No enlarged lymph nodes. IMPRESSION: No intramural hematoma, aneurysm, or dissection of the thoracic aorta. Prosthetic aortic valve. No focal infiltrate, pleural effusion, or pneumothorax. Electronically signed by: Malcolm Banks MD 06/11/22 21:17 PM
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
[2022-06-11] MEDS ORDERED: MELATONIN 3 MG TAB PO PRN (23:20)
[2022-06-11] MEDS ORDERED: CALCIUM CARBONATE 500 MG CHEWABLE TAB PO PRN (23:20)
[2022-06-11] MEDS ORDERED: ACETAMINOPHEN 325 MG TAB PO PRN (23:58)
[2022-06-11] MEDS ORDERED: POTASSIUM CHLORIDE CRTAB 20 MEQ TABCR PO STA (23:58)
[2022-06-11] MEDS ORDERED: ONDANSETRON INJ 2 MG/ML 2 ML VIAL IV PRN (23:58)
[2022-06-11] MEDS ORDERED: NITROGLYCERIN SL 0.4 MG/TAB TAB SL PRN (23:58)
[2022-06-11] MEDS ORDERED: POLYETHYLENE (MIRALAX) 17 GM PACK PO PRN (23:58)
--- NOTE | 2022-06-12 01:44 | Billing Data ---
Date of Service June 12, 2022 Coding Level of Care Code 90111 SUB INP/OBS CARE
[2022-06-12 06:58] LABS: Basophils # (auto) 0.02 K/uL (0-0.2); Basophils % (auto) 0.3 %; Eosinophils # (auto) 0.22 K/uL (0-0.50); Eosinophils % (auto) 3.2 %; Hematocrit (blood only) 41.9 % (42.0-52.0); Hemoglobin 15.3 g/dl (14.0-18.0); Immature Granulocytes # (auto) 0.03 K/uL (0.01-0.20); Immature Granulocytes % (auto) 0.4 %; Lymphocytes # (auto) 1.42 K/uL (1.2-3.4); Lymphocytes % (auto) 20.9 %; Mean Corpuscular Hemoglobin 31.8 pg (25.0-34.0); Mean Corpuscular Hgb Conc 36.5 g/dL (32.0-36.0); Mean Corpuscular Volume 87.1 fL (80.0-100.0); Mean Platelet Volume 10.6 fL (9.4-12.4); Monocytes # (auto) 0.75 K/uL (0.11-0.59); Monocytes % (auto) 11.1 %; Neutrophils # (auto) 4.34 K/uL (1.40-6.50); Neutrophils % (auto) 64.1 %; Platelet Count 180 K/uL (130-400); RDW Coefficient of Variation 13.4 % (11.5-14.5); RDW Standard Deviation 42.6 fL (36.4-46.3); Red Blood Count 4.81 M/uL (4.70-6.10); White Blood Count 6.78 K/ul (4.8-10.8)
[2022-06-12 07:17] LABS: BUN Creatinine Ratio 14.6 (10-20); Calcium 9.1 mg/dl (8.6-10.3); Creatinine Clr Calc Pharmacy 68.1 ml/min; Est GFR (African American) 99.7 ml/min; Potassium 3.8 mmol/L (3.5-5.1)
[2022-06-12 07:52] LABS: Chol HDL Ratio 3.1 (0-5)
[2022-06-12 07:57] LABS: Troponin I High Sensitivity 20.9 pg/ml (0-20)
[2022-06-12 08:15] LABS: Estimated Average Glucose 82 mg/dl; Hemoglobin A1C 4.5 % (4.5-5.6)
[2022-06-12] MEDS ORDERED: dilTIAZem HCL 180 MG CAPCR PO SCH (09:00)
[2022-06-12] MEDS ORDERED: hydroCHLOROthiazide 25 MG TAB PO SCH (09:00)
[2022-06-12] MEDS ORDERED: APIXABAN 5 MG TABLET PO SCH (09:00)
[2022-06-12] MEDS ORDERED: ROSUVASTATIN CALCIUM 20 MG TAB PO SCH (09:00)
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
--- NOTE | 2022-06-12 13:17 | Electrocardiogram Report ---
Test Reason : Blood Pressure : / mmHG Vent. Rate : 076 BPM Atrial Rate : 000 BPM P-R Int : 000 ms QRS Dur : 098 ms QT Int : 422 ms P-R-T Axes : 000 -37 016 degrees QTc Int : 474 ms Sinus rhythm with premature ventricular or aberrantly conducted complexes , frequent PACs Left axis deviation Abnormal ECG When compared with ECG of 23-MAY-2020 06:40, No significant change Confirmed by Ford Marte ([id number]) on 06/12/2022 1:16:23 PM Referred By: REFERRED SELF Confirmed By:Ford Marte
--- NOTE | 2022-06-12 15:56 | XCELERA ---
[id number]
== END 2022-06-12 12:50 | disposition home or self-care (01) ==
LOC: ED 18:15 → 2N 18:15 → SUATTDRO 22:26 → 2N 23:32

== ENCOUNTER 2023-08-11 05:40 | Observation (INO) ==
--- NOTE | 2023-07-10 10:32 | PAT Medication Instructions ---
Medication Instructions Date of Service July 10, 2023 Home Medications Medication Instructions Recorded nitroglycerin 0.4 mg sublingual 0.4 mg sublingual Q5M PRN Chest 02/23/20 tablet Pain #25 tabs amoxicillin 500 mg capsule 2,000 mg (4 x 500 mg) PO .COMPLEX 02/28/22 #4 caps sildenafil 100 mg tablet (Viagra) 100 mg PO DAILY PRN sexual 06/19/22 activity #30 tabs cholecalciferol (vitamin D3) 125 125 mcg PO DAILY #30 caps 07/24/22 mcg (5,000 unit) capsule rosuvastatin 20 mg tablet 20 mg PO DAILY #90 tabs 08/30/22 hydrochlorothiazide 25 mg tablet 25 mg PO DAILY #90 tabs 11/18/22 tamsulosin 0.4 mg capsule 0.4 mg PO DAILY #90 caps 01/27/23 diltiazem HCl 180 mg 180 mg PO DAILY #90 caps 02/04/23 capsule,extended release 24 hr apixaban 5 mg tablet (Eliquis) 5 mg PO BID #180 tabs 02/11/23 Medication List: nitroglycerin 0.4 mg sublingual tablet 0.4 mg sublingual Q5M PRN Chest Pain amoxicillin 500 mg capsule 2,000 mg (4 x 500 mg) PO .COMPLEX sildenafil 100 mg tablet (Viagra) 100 mg PO DAILY PRN sexual activity cholecalciferol (vitamin D3) 125 mcg (5,000 unit) capsule 125 mcg PO DAILY rosuvastatin 20 mg tablet 20 mg PO DAILY hydrochlorothiazide 25 mg tablet 25 mg PO DAILY ascorbic acid (vitamin C) 1,000 mg capsule 1 g PO DAILY esomeprazole magnesium 20 mg tablet,delayed release 20 mg PO DAILY PRN Acid Reflux potassium gluconate 500 mg (83 mg) tablet 500 mg PO DAILY tamsulosin 0.4 mg capsule 0.4 mg PO DAILY zinc acetate 25 mg (zinc) capsule (Galzin) 25 mg PO DAILY diltiazem HCl 180 mg capsule,extended release 24 hr 180 mg PO DAILY apixaban 5 mg tablet (Eliquis) 5 mg PO BID melatonin 3 mg tablet 3 mg PO HS PRN Sleep MEDICATION INSTRUCTIONS: Continue as directed nitroglycerin 0.4 mg sublingual tablet 0.4 mg sublingual Q5M PRN Chest Pain amoxicillin 500 mg capsule 2,000 mg (4 x 500 mg) PO .COMPLEX ASK your prescriber and surgeon apixaban 5 mg tablet (Eliquis) 5 mg PO BID DO NOT take the morning of surgery cholecalciferol (vitamin D3) 125 mcg (5,000 unit) capsule 125 mcg PO DAILY hydrochlorothiazide 25 mg tablet 25 mg PO DAILY zinc acetate 25 mg (zinc) capsule (Galzin) 25 mg PO DAILY ascorbic acid (vitamin C) 1,000 mg capsule 1 g PO DAILY potassium gluconate 500 mg (83 mg) tablet 500 mg PO DAILY sildenafil 100 mg tablet (Viagra) 100 mg PO DAILY PRN sexual activity Take morning of surgery With a small sip of water, OTHERWISE NOTHING TO EAT OR DRINK AFTER MIDNIGHT: diltiazem HCl 180 mg capsule,extended release 24 hr 180 mg PO DAILY rosuvastatin 20 mg tablet 20 mg PO DAILY tamsulosin 0.4 mg capsule 0.4 mg PO DAILY esomeprazole magnesium 20 mg tablet,delayed release 20 mg PO DAILY PRN Acid Reflux Take evening before surgery melatonin 3 mg tablet 3 mg PO HS PRN Sleep Other Notes If you have any questions please call us at [phone] or [phone] or [phone] or [phone]
--- NOTE | 2023-07-21 14:37 | Anesthesiology Consultation ---
Date of Service July 21, 2023 Assessment & Plan (1) Encounter for pre-operative examination: Plan - awaiting surgeon ordered cardiology clearance. - cardiology office visit [place] 06/04/23: "...Paroxysmal atrial fibrillation: Asymptomatic. Irregularly irregular on exam today and likely in A-fib but asymptomatic with normal heart rate. A-fib noted on 2020 and 2021 monitor. Continue anticoagulation for stroke risk reduction. Continue diltiazem for rate control strategy...Bicuspid aortic valve with stenosis s/p TAVR: Asymptomatic. Mild to moderate perivalvular leak per [facility] echo in February of 2021 , but appeared trace on most recent imaging here (consistently). SBE prophylaxis for dental procedures. Repeat echo in approximately 6 months. Nonobstructive CAD: No angina. Stress echo negative in 2022. Continue statin therapy...Carotid bruit: Likely secondary to radiation of cardiac murmur. Carotid duplex without significant stenosis. Dilated aortic root: CT angiogram without significant dilation but echo demonstrated mild aortic root dilation in the past. Most recent echo top normal aortic root size. Avoid strenuous lifting for which the Valsalva maneuver is required. Has reported intolerance to beta-robert therapy in the past...SVT: Has been seen by electrophysiology. Beta-robert offered no significant improvement and he reported intolerance (mucus in throat). He has been asymptomatic since diltiazem initiated in August of 2020. Ablation was not recommended by electrophysiology unless necessary given the fact that he would need to be under general anesthetic during the procedure due to inability to lay flat. Dronedarone was also mentioned as a possibility if diltiazem proved to be ineffective. Fortunately, no significant symptoms..." - facial hair: patient advised on shaving/trimming facial hair. Patient and his verbalized understanding. Chart Review Chart Review: Pending: Refer to Additional Notes / Consult section and Patient seen in Pre Admission Testing Teaching & Discussion Pre-Anesthesia Teaching/Discussion Notes: Instructed NPO after midnight before surgery, except medications with 15 cc of water. Medication instructions provided according to the PAT guidelines. History Surgery Operation Date: 08/11/23 07:30 Proposed Procedures p L2-L3, L3-L4 Laminectomy - Miah Pearl MD Height/Weight Height: 5 ft 3 in Weight: 74.9 kg Allergies Allergy/AdvReac Type Severity Reaction Status Date / Time carisoprodol Allergy Severe Hypotension Verified 07/02/23 12:16 codeine Allergy Unknown ITCHY Verified 03/17/23 10:57 Medications Home Medications Medication Instructions Recorded Confirmed Last Taken nitroglycerin 0.4 mg sublingual 0.4 mg sublingual Q5M PRN Chest 02/23/20 07/02/23 Unknown tablet Pain #25 tabs amoxicillin 500 mg capsule 2,000 mg (4 x 500 mg) PO .COMPLEX 02/28/22 07/02/23 Unknown #4 caps sildenafil 100 mg tablet (Viagra) 100 mg PO DAILY PRN sexual 06/19/22 07/02/23 Unknown activity #30 tabs cholecalciferol (vitamin D3) 125 125 mcg PO DAILY #30 caps 07/24/22 07/02/23 Unknown mcg (5,000 unit) capsule rosuvastatin 20 mg tablet 20 mg PO DAILY #90 tabs 08/30/22 07/02/23 Unknown hydrochlorothiazide 25 mg tablet 25 mg PO DAILY #90 tabs 11/18/22 07/02/23 Unknown ascorbic acid (vitamin C) 1,000 mg 1 g PO DAILY 01/27/23 07/02/23 Unknown capsule esomeprazole magnesium 20 mg 20 mg PO DAILY PRN Acid Reflux 01/27/23 07/02/23 Unknown tablet,delayed release potassium gluconate 500 mg (83 mg) 500 mg PO DAILY 01/27/23 07/02/23 Unknown tablet tamsulosin 0.4 mg capsule 0.4 mg PO DAILY #90 caps 01/27/23 07/02/23 Unknown zinc acetate 25 mg (zinc) capsule 25 mg PO DAILY 01/27/23 07/02/23 Unknown (Galzin) diltiazem HCl 180 mg 180 mg PO DAILY #90 caps 02/04/23 07/02/23 Unknown capsule,extended release 24 hr apixaban 5 mg tablet (Eliquis) 5 mg PO BID #180 tabs 02/11/23 07/02/23 Unknown melatonin 3 mg tablet 3 mg PO HS PRN Sleep 07/02/23 07/02/23 Unknown Past Medical History Medical History (Updated 07/21/23 @ 15:56 by Jenny Ortega PA-C) Asthma (09/29/12) as a child CAD (coronary artery disease) non-obstructive Chronic anticoagulation eliquis daily Disc degeneration, lumbar Dyslipidemia GERD (gastroesophageal reflux disease) controlled, stable per pt History of COVID-19 (2021) no hosp; resolved HTN (hypertension) Hx of chest pain 06/2022- follows w/ Dr Peraza; denies recurrence or needing to take nitroglycerin Hx of supraventricular tachycardia after TAVR procedure, no issues since Junctional rhythm hx Paroxysmal atrial fibrillation asymptomatic, controlled w/ meds, on eliquis daily Scoliosis of lumbar region due to degenerative disease of spine in adult Spinal stenosis Patient denies h/o stroke, seizures, heart attack, heart failure, DM, blood clots/DVTs or blood transfusions. Exercise / Class Metabolic Activity II 4-5 Yardwork/Stairs/Walk up hill (occasional SOB with 13 steps in home- ongoing since valve repair 2019-denies change or worsening; denies chest discomfort) Past Family History Family History Father Cancer Mother Asthma Coronary heart disease Diabetes Heart disease Hypertension Stroke Denies family history of Sudden Alzheimer disease Bipolar disorder Myocardial infarction Breast cancer Schizophrenia Lung cancer COPD (chronic obstructive pulmonary disease) Colorectal cancer Lung disease Past Surgical History Surgical History History of surgery on arm Right bicep tendon repair. Hx of cardiac catheterization 2016 and 2019 [place], no stents placed Hx of colonoscopy Hx of hernia repair "testicular" Hx of umbilical hernia repair S/P TAVR (transcatheter aortic valve replacement) (01/2020) Past Anesthesia History No Hx of Anesthesia Complications and No Family Hx of Anesthesia Complications History of PONV No Hx of PONV and No Hx of Motion Sickness Social History Smoking Status: Former smoker Do You Dip or Chew Tobacco: No Smoking End Date: quit 1996 Hx Alcohol Use: Yes Alcohol type: beer alcohol intake frequency: 0-2 drinks per day (1-3 drinks daily) Hx Substance Use: No substance use type: does not use Review of Systems Snoring, denies witnessed apneas-states no sleep apnea was found on sleep study. Patient denies chest pain, shortness of breath, dyspnea on exertion, fever, chills, cough, wheezing, or palpitations. Physical Exam Vital Signs Vitals BP 145/73 P 71 TEMP 98 SP02 96% on RA RESP 18 Physical Patient resting comfortably in chair in no acute distress, alert and oriented, responding appropriately throughout visit Full cervical extension range of motion without pain TMD 3.5 finger breadths Mallampati Score 2 Dentition: multiple missing tooth with plans for new upper permanent bridge placement this week and several caps; denies chipped or loose teeth, implants ( with surgeon's office advised patient can proceed with dental procedure and surgery as scheduled) Lungs: normal respiratory effort. Good air movement, clear throughout to auscultation, no adventitious breath sounds Cardiac: regular rate and rhythm, no murmurs noted Carotid arteries: negative bruit bilat Lab Results Anesthesia Preop Results Results Anesthesia Widget: WBC 7.72 K/ul (4.8-10.8) 07/21/23 Hgb 15.4 g/dl (14.0-18.0) 07/21/23 Hct 44.1 % (42.0-52.0) 07/21/23 Plt 177 K/uL (130-400) 07/21/23 Na 140 mmol/L (136-145) 07/21/23 K 3.9 mmol/L (3.5-5.1) 07/21/23 Cl 103 mmol/L (98-107) 07/21/23 CO2 31 mmol/L (21-32) 07/21/23 BUN 15 mg/dl (6-23) 07/21/23 Creat 1.00 mg/dl (0.6-1.4) 07/21/23 Glucose Level 104 mg/dl (70-99(Fasting)) H 07/21/23 PT 11.6 Seconds (9.0-12.0) 07/21/23 PTT 29 Seconds (21-31) 07/21/23 INR 1.1 (0.9-1.1) 07/21/23 HA1c 4.6 % (4.5-5.6) 07/21/23 Blood Type O Positive 07/21/23 Antibody Screen NEGATIVE 07/21/23 Testing Electrocardiogram Date: 07/21/23 NSR, rate 64 bpm Left axis deviation Chest X-Ray Date: 07/21/23 No acute process. Echocardiogram Date: 06/12/22 EF 55-60% Normal functioning bioprosthetic aortic valve with trace perivalvular leak Septal motion is consistent with conduction abnormality Mild cLVH Stress Test Date: 09/02/22 MPHR 95% Negative stress echo and ECG for ischemia EF 55-60% No LV regional wall motion abnormalities Mild cLVH Bioprosthetic aortic valve with appropriate transvalvular gradient/velocity; trace perivalvular leak
[2023-08-11] MEDS: LR 15ML/HR IV SCH (06:20)
[2023-08-11] MEDS: LR 60ML/HR IV SCH (06:22)
[2023-08-11] MEDS ORDERED: ONDANSETRON INJ 2 MG/ML 2 ML VIAL ONE (06:52)
[2023-08-11] MEDS ORDERED: LIDOCAINE 2% 2 ML VIAL/AMP(20MG/ML) INFIL ONE ×2 (06:52)
[2023-08-11] MEDS ORDERED: DEXAMETHASONE SOD INJ 4 MG/ML VIAL ONE (06:52)
[2023-08-11] MEDS ORDERED: PROPOFOL IV EMULSION 10 MG/ML 20 ML VIAL IV ONE (06:52)
[2023-08-11] MEDS ORDERED: MIDAZOLAM HCL 1 MG/ML 2ML VIAL ONE (06:52)
[2023-08-11] MEDS ORDERED: fentaNYL citrate PF 100 MCG/2 ML VIAL ONE ×2 (06:52→09:02)
[2023-08-11] MEDS ORDERED: ROCURONIUM BROMIDE 10 MG/ML 5 ML VIAL IV ONE ×10 (06:52→07:01)
--- NOTE | 2023-08-11 07:29 | History & Physical Bridge Note ---
Date of Service August 11, 2023 History & Physical Bridge Note I have examined the patient, reviewed the History & Physical and in the interval since the performance of the History & Physical I have noted the following changes of clinical significance: no changes noted
[2023-08-11] MEDS: ceFAZolin 2000MG 2,000 MG/15 ML SYR IV SCH (07:45)
[2023-08-11] MEDS ORDERED: ePHEDrine sulfate 50 MG/5 ML SYR ONE (08:01)
[2023-08-11] MEDS ORDERED: SUGAMMADEX SODIUM 200 MG/2 ML VIAL IV ONE (08:11)
[2023-08-11] MEDS: FLOSEAL HEMOSTATIC MATRIX 5ML TOP ONE (09:51)
[2023-08-11] MEDS ORDERED: ePHEDrine sulfate 50 MG/ML AMP IV PRN (10:03)
[2023-08-11] MEDS ORDERED: PROMETHAZINE HCL 6.25 MG in SODIUM CHLORIDE 0.9% 50 ML IV PRN (10:03)
[2023-08-11] MEDS ORDERED: HYDROmorphone INJ 2 MG/ML SYR/VIAL IV PRN (10:03)
[2023-08-11] MEDS ORDERED: ATROPINE SULFATE 0.1 MG/ML 10ML SYR IV PRN (10:03)
[2023-08-11] MEDS ORDERED: ONDANSETRON INJ 2 MG/ML 2 ML VIAL IV PRN ×2 (10:03→11:06)
[2023-08-11] MEDS: BUPIVACAINE/EPINEPHRINE 0.5% MPF 1:200,000 30 ML VIAL ONE (10:20)
[2023-08-11] MEDS ORDERED: KETOROLAC 30 MG/ML VIAL ONE ×2 (10:20)
[2023-08-11] MEDS: methylPREDNISolone acetate 40 MG/ML VIAL ONE (10:21)
[2023-08-11] MEDS: VANCOMYCIN HCL 1000MG/20ML VIAL ONE (10:21)
[2023-08-11] MEDS: GELATIN SPONGE 12-7MM ONE (10:21)
[2023-08-11] MEDS: THROMBIN 5000 UNITS KIT ONE (10:21)
[2023-08-11] MEDS: fentaNYL citrate PF 100 MCG/2 ML VIAL IV PRN (11:00)
--- NOTE | 2023-08-11 11:05 | Post Operative Brief Note ---
PG Immediate Post Op with CF Date of Surgery August 11, 2023 Pre & Post Diagnosis Operation Date: 08/11/23 07:15 Pre-Op Diagnosis: Spinal Stenosis, Lumbar Region with Neurogenic Claudication Post-Op Diagnosis: Spinal Stenosis, Lumbar Region with Neurogenic Claudication I identified the patient and participated in the time-out.: Yes Procedure Operation Date: 08/11/23 07:15 Actual Procedures p L2-L3, L3-L4 Laminectomy(Not Applicable) - Miah Pearl MD Surgeon Miah Pearl MD Manager Reporting none Estimated Blood Loss 150 Findings Consistent with Post-Op Diagnosis Specimens Specimen Description: none per surgeon Drains Mckinney Catheter
[2023-08-11] MEDS ORDERED: FAMOTIDINE 20 MG TAB PO PRN (11:06)
[2023-08-11] MEDS ORDERED: HYDROmorphone INJ 0.5 MG/0.5 ML SYR IV PRN (11:06)
[2023-08-11] MEDS ORDERED: METOCLOPRAMIDE HCL INJ 5 MG/ML 2 ML VIAL IV PRN (11:06)
[2023-08-11] MEDS ORDERED: hydrOXYzine HCl 25 MG TAB PO PRN (11:06)
[2023-08-11] MEDS ORDERED: SOD PHOSPHATE/SOD BIPHOSPHATE ENEMA 132 ML BTL PR PRN (11:06)
[2023-08-11] MEDS ORDERED: LORazepam 0.5 MG in SYRINGE 0.25 ML IV PRN (11:06)
[2023-08-11] MEDS ORDERED: LORazepam 0.5 MG TAB PO PRN (11:06)
[2023-08-11] MEDS ORDERED: DO NOT ADMINISTER FLU VACCINE PRN (11:06)
[2023-08-11] MEDS ORDERED: PROMETHAZINE HCL 12.5 MG in SODIUM CHLORIDE 0.9% 50 ML IV PRN (11:06)
[2023-08-11] MEDS ORDERED: ACETAMINOPHEN 1,000 MG/100 ML VIAL IV PRN (11:06)
[2023-08-11] MEDS ORDERED: ONDANSETRON 4 MG OD TAB PO PRN (11:06)
[2023-08-11] MEDS ORDERED: DO NOT ADMINISTER PNEUMOCOCCAL VACCINE PRN (11:06)
[2023-08-11] MEDS ORDERED: MAGNESIUM HYDROXIDE SUSP 30 ML UDC PO PRN (11:06)
[2023-08-11] MEDS ORDERED: bisacodyL 10 MG SUPP PR PRN (11:06)
[2023-08-11] MEDS ORDERED: NALOXONE HCL 0.4 MG/1 ML VIAL/CARP IV PRN (11:06)
--- NOTE | 2023-08-11 11:06 | Fluoroscopy Report ---
FL spine 1V any level CLINICAL HISTORY: L2-L4 LAMI TECHNIQUE: 2 views were obtained with the C-arm in the OR with the above procedure. Total fluoroscopy time was 3 seconds. Comparison: Comparison is made to MRI lumbar spine 08/10/2022 FINDINGS/IMPRESSION: Intraoperative images were obtained of L2-L3 and L3-L4 laminectomy. Please correlate with intraoperative fluoroscopy and operative report. ACT 112: Negative or not required by law. Electronically signed by: Jonatan Mejia M.D. 08/11/2023 11:04 AM
--- NOTE | 2023-08-11 11:55 | Anesthesiology Progress Note ---
Date of Service August 11, 2023 Anesthesia Post Procedure Vital Signs Vital Signs: Temp Pulse Pulse Resp BP Pulse Ox O2 Del Method 08/11/23 11:50 78 14 119/54 L 96 Oxymask 08/11/23 11:35 36.4 C L 87 18 126/70 97 Oxymask 08/11/23 11:25 79 12 129/67 97 Oxymask 08/11/23 11:15 75 14 120/62 97 Oxymask 08/11/23 11:05 77 20 126/62 95 Oxymask 08/11/23 10:55 36.7 C 87 18 125/80 95 Oxymask 08/11/23 05:53 36.5 C 84 20 133/60 96 Room Air O2 Flow Rate 08/11/23 11:50 4 08/11/23 11:35 4 08/11/23 11:25 6 08/11/23 11:15 6 08/11/23 11:05 10 08/11/23 10:55 10 08/11/23 05:53 Pain Intensity Lower Medial Back: Pain Intensity: 5 Transfer of Care Handoff Completed per policy Notes Mental Status: alert / awake / arousable and participated in evaluation Patient Amnestic to Procedure: Yes Nausea / Vomiting: adequately controlled Pain: adequately controlled Airway Patency, RR, SpO2: stable & adequate BP & HR: stable & adequate Hydration State: stable & adequate Anesthetic Complications: no major complications apparent
[2023-08-11] MEDS ORDERED: NITROGLYCERIN SL 0.4 MG/TAB TAB SL PRN (12:13)
[2023-08-11] MEDS: LACTATED RINGER'S 1,000 ML IV SCH (12:24)
[2023-08-11] MEDS: oxyCODONE/ACETAMINOPHEN 5mg/325mg TAB PO PRN (16:28)
[2023-08-11] MEDS: ceFAZolin 1000MG 1,000 MG/7.5 ML SYR IV SCH (17:07)
--- NOTE | 2023-08-11 19:24 | Hospitalist Progress Note ---
Date of Service August 11, 2023 Assessment & Plan (1) CAD (coronary artery disease): Plan: Coronary artery disease, aortic stenosis status post TAVR, paroxysmal atrial fibrillation, hyperlipidemia, hypertension, SVToverall appears to be quite stable. Resume Eliquis once possible for orthopedics/spine. Continue to follow. Medically stable at this time. Admission and Anticipated Discharge Date Admission Date: August 11, 2023 Subjective some degree of back painbut overall feels that it is under good control. No other new complaints. No chest pain no shortness of breath. Review of Systems Review of Systems: All systems reviewed & are unremarkable except as noted in HPI & below Physical Exam Physical Exam: In general he is awake and alert pleasant no distress. HEENT normocephalic atraumatic mucous membranes moist. Breathing unlabored no accessory muscle use good effort. Skin without rashes pallor or icterus. Neuro without focal deficits. Spine incision is dressed, dressing appears to be overall clean dry and intactthere is degree of blood stain, but seems to be within reasonable expectation given the surgery. There is no tracking erythema. Results & Data Results & Data Vital Signs (Past 12 Hours) Vital Signs Temp Pulse Pulse Resp BP Pulse Ox O2 Del Method 08/11/23 19:00 97.9 F 88 18 150/74 H 95 Room Air 08/11/23 15:10 98.1 F 77 16 118/62 97 Room Air 08/11/23 14:33 97.5 F L 76 16 127/63 96 Room Air 08/11/23 13:05 98.2 F 80 16 126/62 92 Room Air 08/11/23 12:54 99.0 F 74 17 132/69 92 Room Air 08/11/23 12:15 98.1 F 79 18 115/68 94 Room Air 08/11/23 11:50 78 14 119/54 L 96 Oxymask 08/11/23 11:35 97.5 F L 87 18 126/70 97 Oxymask 08/11/23 11:25 79 12 129/67 97 Oxymask 08/11/23 11:15 75 14 120/62 97 Oxymask 08/11/23 11:05 77 20 126/62 95 Oxymask 08/11/23 10:55 98.1 F 87 18 125/80 95 Oxymask O2 Flow Rate 08/11/23 19:00 08/11/23 15:10 08/11/23 14:33 08/11/23 13:05 08/11/23 12:54 08/11/23 12:15 08/11/23 11:50 4 08/11/23 11:35 4 08/11/23 11:25 6 08/11/23 11:15 6 08/11/23 11:05 10 08/11/23 10:55 10 PG Care Time/CCT Total # of Minutes Spent Total Time Spent with Patient: Total time spent is greater than 50% in coordination of care (as documented) at patient's floor/unit and/or counseling patient: Coding Level of Care Code 45786 SUB INP/OBS CARE 235MIN Diagnoses CAD (coronary artery disease) I25.10
[2023-08-11] MEDS: diphenhydrAMINE Capsule 25 MG CAP PO PRN (21:30)
[2023-08-11] MEDS: DOCUSATE SODIUM/SENNA 50/8.6MG TAB PO SCH (21:30)
[2023-08-11] MEDS: ALUMINUM/MAGNESIUM SUSP 30 ML UDC PO PRN (21:33)
[2023-08-12] MEDS: POLYETHYLENE (MIRALAX) 17 GM PACK PO SCH (05:40)
[2023-08-12] MEDS: ACETAMINOPHEN 500 MG TAB PO PRN (05:44)
[2023-08-12 07:10] LABS: Basophils # (auto) 0.02 K/uL (0.00-0.20); Basophils % (auto) 0.1 %; Hematocrit (blood only) 40.4 % (42.0-52.0); Hemoglobin 14.2 g/dl (14.0-18.0); Immature Granulocytes # (auto) 0.11 K/uL (0.01-0.20); Immature Granulocytes % (auto) 0.7 %; Lymphocytes # (auto) 0.63 K/uL (1.20-3.40); Lymphocytes % (auto) 3.9 %; Mean Corpuscular Hemoglobin 30.7 pg (25.0-34.0); Mean Corpuscular Hgb Conc 35.1 g/dL (32.0-36.0); Mean Corpuscular Volume 87.4 fL (80.0-100.0); Mean Platelet Volume 11.1 fL (9.4-12.4); Monocytes # (auto) 0.95 K/uL (0.11-0.59); Monocytes % (auto) 5.8 %; Neutrophils # (auto) 14.55 K/uL (1.40-6.50); Neutrophils % (auto) 89.5 %; Platelet Count 168 K/uL (130-400); RDW Coefficient of Variation 13.2 % (11.5-14.5); Red Blood Count 4.62 M/uL (4.70-6.10); White Blood Count 16.26 K/ul (4.8-10.8)
[2023-08-12] MEDS: hydroCHLOROthiazide 25 MG TAB PO SCH (07:52)
[2023-08-12 08:04] LABS: Calcium 8.4 mg/dl (8.6-10.3); Potassium 3.8 mmol/L (3.5-5.1)
[2023-08-12 08:10] LABS: BUN Creatinine Ratio 15.1 (10-20); Creatinine Clr Calc Pharmacy 69.6 ml/min; Est GFR (African American) 100.4 ml/min; Est GFR (Non-African American) 86.6 ml/min
--- NOTE | 2023-08-12 08:48 | Orthopedic Progress Note ---
Date of Service August 12, 2023 Subjective Patient seen and examined, notes limited incisional pain at proximal. Feels that possibly some improvement of lower extremities. Exam reveals the incision to have some limited drainage on it, intact motor strength. Impression: Postop day 1 from lumbar decompression L2-3 and L3-4, overall mobilizing well. Plan: Today at this time we will have the patient undergo physical therapy and Occupational Therapy and if cleared by medicine he can leave later today. Review of Systems All systems reviewed & are unremarkable except as noted in HPI & below. Physical Exam . Results & Data Results & Data Laboratory Results . Diagnostic Findings . PG Care Time/CCT Total # of Minutes Spent Total Time Spent with Patient: Total time spent is greater than 50% in coordination of care (as documented) at patient's floor/unit and/or counseling patient: Coding Level of Care Code 83973 Post Operative Follow-Up
--- NOTE | 2023-08-12 08:51 | Discharge Summary ---
Date of Service August 12, 2023 Admission HPI (Per Admitting) Lumbar stenosis, surgery August 11, 2023 with lumbar decompression L2-3 and L3-4. Principal Diagnosis Same as "Discharge Diagnosis" noted below under Discharge Instructions. Discharge Exam . Discharge Data Consultations 08/11/23 11:11 Consult Hospitalist Routine Procedures Performed Operation Date: 08/11/23 07:15 Actual Procedures p L2-L3, L3-L4 Laminectomy(Not Applicable) - Miah Pearl MD Ordered Studies 08/11/23 07:15 FL spine 1V any level Routine Hospital Course (1) Spinal stenosis, lumbar region with neurogenic claudication: Surgical decompression L2-3 and L3-4 PG Care Time/CCT Total # of Minutes Spent Total Time Spent with Patient: Total time spent is greater than 50% in coordination of care (as documented) at patient's floor/unit and/or counseling patient: Discharge Plan Discharge Items Patient Disposition: Home - Self-Care Reason For Visit: Spinal Stenosis, Lumbar Region with Neurogenic Cla Discharge Diagnosis: Spinal stenosis with neurogenic claudication. Activity: As commented below Lifting: No more than 10 pounds Bathing: May shower/bathe in 3 days Driving/Machine Use: Resume 3 days after discharge Weightbearing: Full weightbearing Non-emergency contact: Surgeon Call non-emergency contact if: your pain is worsening Follow-up/Referrals: Noman Victor DO [Primary Care Provider] - Diet: Regular Addtl Attending Provider Instructions: Oxycodone 1 or 2 once or twice a day for pain. No significant bending lifting twisting, follow-up in 2 weeks. Pending Studies at Discharge: No Stand-Alone Forms: [facility], Smoking Cessation Medications and DC Order Prescriptions: Continued amoxicillin 500 mg capsule 2,000 mg PO .COMPLEX Qty: 4 3RF Rx Instructions: 2,000 mg orally 30-60 minutes prior to dental procedure; rosuvastatin 20 mg tablet 20 mg PO DAILY Qty: 90 3RF hydrochlorothiazide 25 mg tablet 25 mg PO DAILY Qty: 90 3RF diltiazem HCl 180 mg capsule,extended release 24hr 180 mg PO DAILY Qty: 90 3RF nitroglycerin 0.4 mg tablet, sublingual 0.4 mg SL Q5M PRN (Reason: Chest Pain) Qty: 25 0RF potassium gluconate 500 mg (83 mg) tablet 500 mg PO DAILY esomeprazole magnesium 20 mg tablet,delayed release (DR/EC) 20 mg PO DAILY PRN (Reason: Acid Reflux) Galzin 25 mg (zinc) capsule 25 mg PO DAILY ascorbic acid (vitamin C) 1,000 mg capsule 1 g PO DAILY tamsulosin 0.4 mg capsule 0.4 mg PO DAILY Qty: 90 3RF cholecalciferol (vitamin D3) 125 mcg (5,000 unit) capsule 125 mcg PO DAILY Qty: 30 0RF Rx Instructions: alternate 5000 and 10,000IU QOD sildenafil [Viagra] 100 mg tablet 100 mg PO DAILY PRN (Reason: sexual activity) Qty: 30 5RF Rx Instructions: administer 30 minutes to 4 hours before activity melatonin 3 mg Tablet 3 mg PO HS PRN (Reason: Sleep) Held Eliquis 5 mg tablet 5 mg PO BID Qty: 180 3RF Hold Instructions: Resume on 08/13/23. Start with evening dose. No Action oxycodone-acetaminophen 5-325 mg tablet 1 tab PO TID Qty: 20 0RF Discharge Orders: Discharge Order (Routine); Ordered 08/12/23 Ordered By: Miah Pearl Admission Data Admit Date/Time: 08/11/23 11:06 Attending Provider: Miah Pearl Admit Provider: Miah Pearl Primary Care Provider: Noman Victor Other Providers: Mario Tripathi Other Interventions: Discharge Summary Assessment (RN) Last Done: 08/12/23 12:21
--- NOTE | 2023-08-12 16:21 | Hospitalist Progress Note ---
Date of Service August 12, 2023 Assessment & Plan (1) CAD (coronary artery disease): Plan: Coronary artery disease, aortic stenosis status post TAVR, paroxysmal atrial fibrillation, hyperlipidemia, hypertension, SVToverall appears to be quite stable. Medically appears stable for discharge. Outpatient follow-up. will resume eliquis on 08/12 per ortho/spine instructions Admission and Anticipated Discharge Date Admission Date: August 11, 2023 Subjective Back pain under control and well within the expected range for what he was anticipating. No chest pain no shortness of breath no chest pressure Review of Systems Review of Systems: All systems reviewed & are unremarkable except as noted in HPI & below Physical Exam Physical Exam: In general he is awake and alert pleasant no distress. HEENT normocephalic atraumatic mucous membranes moist. Breathing unlabored no accessory muscle use good effort. Skin shows no rashes no pallor or icterus. Neuro without focal deficits. Results & Data Results & Data Vital Signs (Past 12 Hours) Vital Signs Temp Pulse Pulse Resp BP Pulse Ox O2 Del Method 08/12/23 12:21 98.1 F 78 84 16 118/62 96 08/12/23 11:00 98.1 F 84 16 118/62 96 Room Air 08/12/23 07:45 Room Air 08/12/23 07:01 97.9 F 78 16 133/63 95 Room Air PG Care Time/CCT Total # of Minutes Spent Total Time Spent with Patient: Total time spent is greater than 50% in coordination of care (as documented) at patient's floor/unit and/or counseling patient: Coding Level of Care Code 41144 SUB INP/OBS CARE 25MIN Diagnoses CAD (coronary artery disease) I25.10
--- NOTE | 2023-08-13 09:47 | Operative Report ---
PG Post Operative Report Pre & Post Diagnosis Operation Date: 08/11/23 07:15 Pre-Op Diagnosis: Spinal Stenosis, Lumbar Region with Neurogenic Claudication Post-Op Diagnosis: Spinal Stenosis, Lumbar Region with Neurogenic Claudication I identified the patient and participated in the time-out.: Yes Procedure Operation Date: 08/11/23 07:15 Actual Procedures p L2-L3, L3-L4 Laminectomy(Not Applicable) - Miah Pearl MD Surgeon Miah Pearl MD Geospatial Technician none Estimated Blood Loss 150 Findings Consistent with Post-Op Diagnosis Specimens None Description of Procedure 1. L2-3 decompression laminectomy (23988) 2. L3-4 decompression laminectomy (38027) Patient was taken the operating room after adequate anesthesia he was carefully positioned prone on the Ezekiel frame. Preprepped was performed followed by bringing in fluoroscopy where I then marked for the area of the incision over the levels as noted. Prep and drape was performed, surgery was started with a midline incision taken down through the subcutaneous tissues down to the region of the spinous processes and then out to the posterior lumbar structures with exposure of the interlaminar regions of L2-3 and L3-4, this was confirmed fluoroscopically. Once completed I then moved ahead with the decompression, this involves removing the interspinous ligament and spinous process, and then moving down for starting at the L3-4 segment. High-speed bur was utilized along with Kerrison punches to perform bilateral laminectomy along the inferior laminar edge of L3 and across the superior laminar edge of L4 along the medial facets on both sides and completing a decompression with undercutting the facets and decompressing the L3 and L4 nerve roots. With this completed Floseal was applied, I then moved to the L2-3 level where an identical procedure was performed with the bilateral laminectomy, partial medial facetectomies undercutting the facets and decompressing L2 and L3 nerve roots. This involves removing the thickened ligamentum flavum at both levels, and the spondylosis as noted with adequate decompression of the dura in both levels without issue. The area was irrigated thoroughly with normal saline, I then applied some Floseal followed by vancomycin powder, and local was injected. The operative site was closed interrupted 0 Vicryl sutures reattaching the supraspinous ligament were available, additional layer of 2-0 Vicryl sutures and tan for the skin. Sterile dressing was applied, the patient tolerated the procedure and was taken recovery room in satisfactory condition. I attest to the content of the Intraoperative Record and any orders documented therein. Any exceptions are noted below.
== END 2023-08-12 13:27 | disposition home or self-care (01) ==
LOC: 3W 05:40 → ASU 05:40

== ENCOUNTER 2024-01-08 18:38 | Inpatient (IN) ==
--- NOTE | 2024-01-08 18:51 | Emergency Department Note ---
Impression & Plan Chest pain ADMIT ED Provider Note HPI: History obtained from patient. The patient is a 73-year-old gentleman with history of atrial fibrillation, on Eliquis, bicuspid aortic valve status post TAVR, nonobstructive coronary artery disease, who presents the emergency department with a chief complaint of 2 episodes of chest pain today. Patient states that he was sitting at the kitchen table earlier today and he developed an episode of substernal chest pain that resolved with nitroglycerin. Patient states that several hours later he developed a second episode that was more consistent. On arrival here to the ED the patient states that he has 7 out of 10 chest pain. He is mildly hypertensive on arrival but otherwise hemodynamically stable and saturating well on room air. ROS: - Per HPI Differential Diagnosis: Acute coronary syndrome, pulmonary embolism, esophagitis, gastritis, pleuritis, costochondritis, aortic dissection, amongst other potential pathologies. *Outpatient medications and allergy history reviewed. PE: General: Alert HEENT: Normocephalic, trachea midline Eyes: Extraocular eye movement is intact, no scleral erythema Pulmonary: Clear to auscultation bilaterally, no wheezing Cardio: Regular rate and rhythm GI: Abdomen is soft to palpation : No suprapubic tenderness MSK: No evidence of trauma or malformation of the extremities, no edema Skin: No evidence of rash Neuro: Alert, no focal deficits Psychiatric: Cooperative INDEPENDENT INTERPRETATIONS: monitoring coordinator: (As interpreted by myself): - An order was placed for continuous cardiac monitoring - Patient was noted to be in atrial fibrillation with a rate of 110 EKG: (As interpreted by myself): Rate: 112 Rhythm: Atrial fibrillation Intervals: Within normal limits ST changes: No ST elevation Time: 1845 Chest x-ray: (As interpreted by myself): No acute disease Interventions provided in ED: -IV morphine, IV Zofran, aspirin Medical Decision Making: IV was established and lab work obtained, patient was placed on cardiac exercise physiologist. EKG per my interpretation shows evidence of atrial fibrillation without any acute ischemic changes. Lab work shows a mild nonspecific white blood cell count at 11.37, hemoglobin is normal, platelet count is normal. D-dimer was obtained that is within normal limits. CMP does not show any evidence of any critical findings, high-sensitivity troponin is noted to be elevated initially at 23.7. Patient states his chest pain is improved following IV morphine and IV Zofran here in the ED. Repeat troponin is mildly elevated in comparison to the first at 27.8. While here in the ED the patient did have frequent PVCs on the monitor, he also had a nonsustained run of ventricular tachycardia of about 3 beats. On my reassessment patient states his chest pain is improved but it is still present, given the above I do feel he should be admitted for further monitoring and assessment in regards to both his nonsustained VT and his chest discomfort. I discussed the patient's presentation with the on-call hospitalist, Dr. Horne, the patient was placed for admission in stable condition. Consultants/Discussions held with other healthcare providers: -Hospitalist, Dr. Horne Disposition discussion held by myself with: -Patient Diagnosis: 1. Chest pain, acute, nonspecific 2. Elevated high-sensitivity troponin level, acute 3. PVCs, acute 4. Nonsustained ventricular tachycardia, transient Disposition: Admission Delon Berger DO Emergency Medicine Past Med/Surg History Problem List (Updated 01/09/24 @ 01:09 by Delon Berger DO) Chest pain (Acute) Elevated troponin Neck pain Paroxysmal atrial fibrillation asymptomatic, controlled w/ meds, on eliquis daily Status post lumbar spine surgery for decompression of spinal cord Chronic anticoagulation Spinal stenosis, lumbar region with neurogenic claudication Spinal stenosis of lumbar region with radiculopathy Low back pain radiating to right leg Disc degeneration, lumbar Disc degeneration, lumbosacral Degenerative spondylolisthesis L4-5 Scoliosis of lumbar region due to degenerative disease of spine in adult Elevated troponin I level (Acute) entered into EMR and last edited 06/11/22 Left shoulder pain Sciatica Muscle cramps Rotator cuff arthropathy of left shoulder 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 SVT (supraventricular tachycardia) Junctional rhythm S/P TAVR (transcatheter aortic valve replacement) CAD (coronary artery disease) Dyslipidemia Hypertension Medical History GERD (gastroesophageal reflux disease) Disc degeneration, lumbar Chronic anticoagulation History of COVID-19 (2021) Spinal stenosis Junctional rhythm Hx of supraventricular tachycardia HTN (hypertension) Hx of chest pain Scoliosis of lumbar region due to degenerative disease of spine in adult Dyslipidemia CAD (coronary artery disease) Asthma (09/29/12) Paroxysmal atrial fibrillation Surgical History Hx of hernia repair Hx of cardiac catheterization Hx of colonoscopy Hx of umbilical hernia repair S/P TAVR (transcatheter aortic valve replacement) (01/2020) History of surgery on arm Family History Father Cancer Mother Asthma Coronary heart disease Diabetes Heart disease Hypertension Stroke Denies family history of Sudden Alzheimer disease Bipolar disorder Myocardial infarction Breast cancer Schizophrenia Lung cancer COPD (chronic obstructive pulmonary disease) Colorectal cancer Lung disease Social History Smoking Status: Former smoker Tobacco Type: Cigarettes Age Started Using Tobacco: 18; Age Quit Using Tobacco: 48; Smoking End Date: 1996; Second Hand Exposure: Yes; Do You Dip or Chew Tobacco: No; Hx Alcohol Use: Yes Alcohol type: beer Alcohol Intake Frequency: 4 or More x per/Week Hx Substance Use: No Preferred Language: Macedonian Communication Ability: Effective Visual Impairment: Limited Hearing Ability: Use of Hearing Aid Supervisor [employer] Required: No Beliefs That Will Affect Care: None marital status: Current Living Situation: Spouse current occupational status: employed and retired 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 [employer] How many Children do You have: 2 How many Children do You have Comment: 2 sons Other Information That Helps Us Care for You: No Feels Safe at Home: Yes Safety Concerns: Feels Safe At This Time Childhood Exposure to Second-Hand Smoke: Yes (mother was a smoker.) Diet: regular caffeine: Yes (coffee ) during the past year weight has: remained stable Dental Care, Regularly: Yes Physical Activity Frequency: Daily Seatbelt Use: always Sunscreen Use: No Do you think of yourself as: straight/heterosexual Sexual Activity: has been sexually active within the last 12 months Gender Identity: Male Assistive Devices: None Allergies Allergies Allergy/AdvReac Type Severity Reaction Status Date / Time carisoprodol Allergy Severe Hypotension Verified 11/07/23 10:43 codeine Allergy Unknown ITCHY Verified 11/07/23 10:43 Home Meds Home Medications Medication Instructions Recorded Confirmed ascorbic acid (vitamin C) 1,000 mg 1 g PO DAILY 01/27/23 11/07/23 capsule esomeprazole magnesium 20 mg 20 mg PO DAILY PRN Acid Reflux 01/27/23 11/07/23 tablet,delayed release potassium gluconate 500 mg (83 mg) 500 mg PO DAILY 01/27/23 11/07/23 tablet zinc acetate 25 mg (zinc) capsule 25 mg PO DAILY 01/27/23 11/07/23 (Galzin) melatonin 3 mg tablet 3 mg PO HS PRN Sleep 07/02/23 11/07/23 Previous Rx's Medication Instructions Recorded amoxicillin 500 mg capsule 2,000 mg (4 x 500 mg) PO .COMPLEX 02/28/22 #4 caps cholecalciferol (vitamin D3) 125 125 mcg PO DAILY #30 caps 07/24/22 mcg (5,000 unit) capsule tamsulosin 0.4 mg capsule 0.4 mg PO DAILY #90 caps 01/27/23 diltiazem HCl 180 mg 180 mg PO DAILY #90 caps 02/04/23 capsule,extended release 24 hr apixaban 5 mg tablet (Eliquis) 5 mg PO BID #180 tabs 02/11/23 sildenafil 100 mg tablet (Viagra) 100 mg PO DAILY PRN sexual 07/28/23 activity #30 tabs nitroglycerin 0.4 mg sublingual 0.4 mg sublingual Q5M PRN Chest 08/27/23 tablet Pain #75 tabs rosuvastatin 20 mg tablet 20 mg PO DAILY #90 tabs 09/09/23 cyclobenzaprine 10 mg tablet 10 mg PO TID PRN muscle spasm #90 11/07/23 tabs methylprednisolone 4 mg tablets in 4 mg PO DAILY #21 ea 11/07/23 a dose pack oxycodone-acetaminophen 5 mg-325 1 tab PO TID PRN pain #21 tabs 11/07/23 mg tablet hydrochlorothiazide 25 mg tablet 25 mg PO DAILY #90 tabs 12/08/23 Results & Data (ED) Vital Signs Vital Signs - 24 hr 01/08/24 18:39 01/08/24 18:48 01/08/24 18:50 Temperature 36.8 C Temperature Source Skin Pulse Rate 103 H 99 H 97 H Pulse Rate [Apical] Pulse Rate from SpO2 Sensor Respiratory Rate 16 24 Respiratory Effort / Characteristics Non-Labored Spontaneous Respiratory Depth Respiratory Pattern Regular Blood Pressure 146/73 H Blood Pressure [Left Arm] Blood Pressure Mean 97 Blood Pressure Mean [Left Arm] Blood Pressure Position Sitting Blood Pressure Position [Left Arm] Pulse Oximetry 93 Oxygen Delivery Method Room Air Sepsis Recent Fever Within 48 Hours No Sepsis New/Unexplained Change in Mental Status N/A Sepsis Action Taken by Nursing No Action Required 01/08/24 18:50 01/08/24 18:50 01/08/24 18:50 Temperature Temperature Source Pulse Rate Pulse Rate [Apical] Pulse Rate from SpO2 Sensor Respiratory Rate Respiratory Effort / Characteristics Respiratory Depth Respiratory Pattern Blood Pressure 146/79 H 146/79 H 146/79 H Blood Pressure [Left Arm] Blood Pressure Mean 94 94 94 Blood Pressure Mean [Left Arm] Blood Pressure Position Blood Pressure Position [Left Arm] Pulse Oximetry Oxygen Delivery Method Sepsis Recent Fever Within 48 Hours Sepsis New/Unexplained Change in Mental Status Sepsis Action Taken by Nursing 01/08/24 18:52 01/08/24 19:00 01/08/24 19:02 Temperature Temperature Source Pulse Rate 95 H Pulse Rate [Apical] 86 Pulse Rate from SpO2 Sensor 98 H Respiratory Rate 21 21 Respiratory Effort / Characteristics Respiratory Depth Respiratory Pattern Blood Pressure Blood Pressure [Left Arm] 161/70 H Blood Pressure Mean Blood Pressure Mean [Left Arm] 100 Blood Pressure Position Blood Pressure Position [Left Arm] Sitting Pulse Oximetry 95 94 95 Oxygen Delivery Method Room Air Room Air Sepsis Recent Fever Within 48 Hours Sepsis New/Unexplained Change in Mental Status Sepsis Action Taken by Nursing 01/08/24 19:38 01/08/24 20:09 01/08/24 21:24 Temperature Temperature Source Pulse Rate 92 H 76 Pulse Rate [Apical] 76 Pulse Rate from SpO2 Sensor 78 Respiratory Rate 18 21 Respiratory Effort / Characteristics Non-Labored Spontaneous Respiratory Depth Normal Respiratory Pattern Regular Blood Pressure Blood Pressure [Left Arm] 118/65 Blood Pressure Mean Blood Pressure Mean [Left Arm] 82 Blood Pressure Position Blood Pressure Position [Left Arm] Lying Pulse Oximetry 95 96 Oxygen Delivery Method Room Air Room Air Sepsis Recent Fever Within 48 Hours Sepsis New/Unexplained Change in Mental Status Sepsis Action Taken by Nursing 01/08/24 21:30 01/08/24 21:39 01/08/24 22:01 Temperature Temperature Source Pulse Rate 74 Pulse Rate [Apical] Pulse Rate from SpO2 Sensor 77 Respiratory Rate 18 Respiratory Effort / Characteristics Respiratory Depth Respiratory Pattern Blood Pressure 141/77 H 130/74 Blood Pressure [Left Arm] Blood Pressure Mean 109 104 Blood Pressure Mean [Left Arm] Blood Pressure Position Blood Pressure Position [Left Arm] Pulse Oximetry 96 Oxygen Delivery Method Room Air Sepsis Recent Fever Within 48 Hours Sepsis New/Unexplained Change in Mental Status Sepsis Action Taken by Nursing Laboratory Data 01/08/24 18:45 01/08/24 18:45 Lab Results 01/08/24 01/08/24 01/08/24 Range/Units 18:45 20:31 20:31 WBC 11.37 H (4.8-10.8) K/ul RBC 4.85 (4.70-6.10) M/uL Hgb 15.1 (14.0-18.0) g/dl Hct 41.8 L (42.0-52.0) % MCV 86.2 (80.0-100.0) fL MCH 31.1 (25.0-34.0) pg MCHC 36.1 H (32.0-36.0) g/dL RDW Std Deviation 42.0 (36.4-46.3) fL RDW Coeff of Luh 13.3 (11.5-14.5) % Plt Count 198 (130-400) K/uL MPV 11.1 (9.4-12.4) fL Immature Gran % (Auto) 0.4 % Neut % (Auto) 73.9 % Lymph % (Auto) 13.7 % Hart % (Auto) 10.0 % Eos % (Auto) 1.7 % Baso % (Auto) 0.3 % Neut # (Auto) 8.41 H (1.40-6.50) K/uL Lymph # (Auto) 1.56 (1.20-3.40) K/uL Hart # (Auto) 1.14 H (0.11-0.59) K/uL Eos # (Auto) 0.19 (0.00-0.50) K/uL Baso # (Auto) 0.03 (0.00-0.20) K/uL Immature Gran # (Auto) 0.04 (0.01-0.20) K/uL PT 11.2 (9.0-12.0) Seconds INR 1.0 (0.9-1.1) Sodium 141 (136-145) mmol/L Potassium 3.5 (3.5-5.1) mmol/L Chloride 103 (98-107) mmol/L Carbon Dioxide 29 (21-32) mmol/L Anion Gap 9 (3-11) BUN 20 (6-23) mg/dl Creatinine 1.10 (0.6-1.4) mg/dl Est Cr Clr Drug Dosing 53.8 ml/min eGFR 70.88 BUN/Creatinine Ratio 18.2 (10-20) Glucose 143 H (70-99(Fasting)) mg/dl Calcium 9.8 (8.6-10.3) mg/dl Magnesium 2.2 (1.7-2.4) mg/dl Total Bilirubin 1.3 H (0.2-1.0) mg/dl AST 22 (13-39) U/L ALT 19 (7-52) U/L Alkaline Phosphatase 83 (34-104) U/L Troponin I High Sens 23.7 H 27.9 H 27.8 H (0-20) pg/ml Total Protein 6.8 (6.0-8.3) gm/dl Albumin 4.5 (3.4-5.0) gm/dl Globulin 2.3 L (2.5-4.0) gm/dl Albumin/Globulin Ratio 2.0 (0.9-2) Lipase 53 (11-82) U/L Administered Medications Apixaban (Apixaban 5 Mg Tablet) 5 mg PO BID SARA Stop: 02/07/24 23:44 Last Admin: 01/09/24 00:02 Dose: 5 mg Documented By: HNT Discontinued Medications Aspirin (Aspirin Chew 324 Mg) 324 mg PO NOW STA Stop: 01/08/24 21:41 Last Admin: 01/08/24 22:13 Dose: 324 mg Documented By: Morphine Sulfate (Morphine Sulfate 4 Mg/Ml 1 Ml Carp\Vial) 4 mg IV NOW STA Stop: 01/08/24 18:49 Last Admin: 01/08/24 19:01 Dose: 4 mg Documented By: Ondansetron HCl (Ondansetron Inj 2 Mg/Ml 2 Ml Vial) 4 mg IV NOW STA Stop: 01/08/24 18:49 Last Admin: 01/08/24 19:01 Dose: 4 mg Documented By: Imaging Data Radiologist's Impression: Chest X-Ray 01/08/24 18:42 Chest radiograph, one view History: Chest pain Comparison: 07/21/2023 Findings: Single AP view of the chest performed. There is a new inferomedial right basilar opacity. There is an aortic root stent. No visualized pleural effusion. No pneumothorax. The cardiomediastinal silhouette is within normal limits. Normal pulmonary vascularity. No evidence for lymphadenopathy. No visualized bony or soft tissue abnormality. Impression: New right basilar opacity, which may represent infection or atelectasis Electronically signed by Kendrick De Leon 01-08-2024 7:40 PM Discharge Plan Visit Data Chief Complaint: Chest Pain Stated Complaint: CHEST PAIN, COUGH, SOB ED Provider: Delon Berger Discharge Problem: Chest pain Patient Disposition: Admitted As Inpatient Discharge Instructions Interventions: ED Discharge Assessment Last Done: 01/08/24 23:29
[2024-01-08] MEDS: MoRPHine SULFATE 4 MG/ML 1 ML CARP\\VIAL IV STA (19:01)
[2024-01-08] MEDS: ONDANSETRON INJ 2 MG/ML 2 ML VIAL IV STA (19:01)
[2024-01-08 19:14] LABS: Basophils # (auto) 0.03 K/uL (0.00-0.20); Basophils % (auto) 0.3 %; Eosinophils # (auto) 0.19 K/uL (0.00-0.50); Eosinophils % (auto) 1.7 %; Hematocrit (blood only) 41.8 % (42.0-52.0); Hemoglobin 15.1 g/dl (14.0-18.0); Immature Granulocytes # (auto) 0.04 K/uL (0.01-0.20); Immature Granulocytes % (auto) 0.4 %; Lymphocytes # (auto) 1.56 K/uL (1.20-3.40); Lymphocytes % (auto) 13.7 %; Mean Corpuscular Hemoglobin 31.1 pg (25.0-34.0); Mean Corpuscular Hgb Conc 36.1 g/dL (32.0-36.0); Mean Corpuscular Volume 86.2 fL (80.0-100.0); Mean Platelet Volume 11.1 fL (9.4-12.4); Monocytes # (auto) 1.14 K/uL (0.11-0.59); Neutrophils # (auto) 8.41 K/uL (1.40-6.50); Neutrophils % (auto) 73.9 %; Platelet Count 198 K/uL (130-400); RDW Coefficient of Variation 13.3 % (11.5-14.5); Red Blood Count 4.85 M/uL (4.70-6.10); White Blood Count 11.37 K/ul (4.8-10.8)
[2024-01-08 19:28] LABS: Albumin Level 4.5 gm/dl (3.4-5.0); BUN Creatinine Ratio 18.2 (10-20); Bilirubin,Total 1.3 mg/dl (0.2-1.0); Calcium 9.8 mg/dl (8.6-10.3); Creatinine Clr Calc Pharmacy 53.8 ml/min; Globulin 2.3 gm/dl (2.5-4.0); Potassium 3.5 mmol/L (3.5-5.1); Total Protein 6.8 gm/dl (6.0-8.3)
[2024-01-08 19:33] LABS: Prothrombin Time 11.2 Seconds (9.0-12.0)
[2024-01-08 19:35] LABS: Troponin I High Sensitivity 23.7 pg/ml (0-20)
[2024-01-08 19:39] VITALS: RESP 18
--- NOTE | 2024-01-08 19:40 | XRay Report ---
Chest radiograph, one view History: Chest pain Comparison: 07/21/2023 Findings: Single AP view of the chest performed. There is a new inferomedial right basilar opacity. There is an aortic root stent. No visualized pleural effusion. No pneumothorax. The cardiomediastinal silhouette is within normal limits. Normal pulmonary vascularity. No evidence for lymphadenopathy. No visualized bony or soft tissue abnormality. Impression: New right basilar opacity, which may represent infection or atelectasis Electronically signed by Kendrick De Leon 01-08-2024 7:40 PM
[2024-01-08 21:03] LABS: Magnesium 2.2 mg/dl (1.7-2.4)
[2024-01-08 21:11] LABS: Troponin I High Sensitivity 27.9 pg/ml (0-20)
[2024-01-08] MEDS: ASPIRIN CHEW 324 MG PO STA (22:13)
[2024-01-08] MEDS ORDERED: ACETAMINOPHEN 325 MG TAB PO PRN (22:15)
--- NOTE | 2024-01-08 22:35 | History & Physical Report ---
Date of Service January 08, 2024 Assessment & Plan (1) Chest pain: Plan: - Troponin mildly elevated 27.8-> 27.9 - EKG without acute ischemic changes - TTE from 08/2023 with EF 55-60%, mild LVH, mildly dilated aortic root - Stress Echo 08/2022 without significant ischemia - Trend troponin - monitor on telemetry - PE unlikely given symptomatology/has been taking Eliquis consistently- check d-dimer to r/u - CXR with right basilar opacity-> fever non-infectious/atelesis given lack of infectious symptoms, no leukocytosis- consider treating for CAP if infectious symptoms evolve - consult cardiology (2) Elevated troponin: Plan: Plan as per above (3) Paroxysmal atrial fibrillation: Plan: - Rate controlled, continue diltiazem - continue Eliquis (4) SVT (supraventricular tachycardia): Plan: - noted history, has been seen by EP prior. Asymptomatic since starting diltiazem in 2020 Plan Chronic Stable: GERD: continue PPI HTN: continue HCTZ HLD: continue statin Diet: NPO at midnight pending cardiology evaluation, ?cath Code: Full VTE Prophylaxis: Eliquis Dispo: Tele History of Present Illness Primary Care Provider: Noman Victor DO 73 year old male with a past medical history of Paroxysmal atrial fibrillation on Eliquis, SVT, Bicuspid aortic valve with stenosis s/p TAVR, Nonobstructive CAD, HTN, HLD presenting with chest pain. States that he had 2 episodes of chest pain today. First at about 1300, took nitro- didn't completely go away but improved significantly. This evening while he was eating Thanksgiving dinner at about 1700 had another episode which prompted him to come in. States pain was midsternal, sharp, did not radiate. Denies associated dyspnea, diaphoresis, nausea. Notes that over the past 2-3 months has gradually noticed increased dyspnea with exertion, especially when going up stairs in his house. Noted that on his way to ED, he had a slight headache. Was given a dose of morphine upon arrival to the ED which relieved both chest pain and headache and neither have returned. Denies recent illness. Has had a cough for the past 1-2 weeks which he associates with phlegm/post nasal drip, but denies fever, chills, congestion. ED Course Significant For: CBC, CMP with TBili= 1.3, otherwise unremarkable. Trop= 27.8-> 27.9. CXR with right basilar opacity. EKG with afib- HR= 112, incomplete RBBB, nonspecific ST changes- no acute ischemic changes. S/p 324mg asp, 4mg Zofran, 4mg morphine Allergies Allergy/AdvReac Type Severity Reaction Status Date / Time carisoprodol Allergy Severe Hypotension Verified 11/07/23 10:43 codeine Allergy Unknown ITCHY Verified 11/07/23 10:43 Home Medications Medication Instructions Recorded Confirmed Type amoxicillin 500 mg capsule 2,000 mg (4 x 500 mg) PO .COMPLEX 02/28/22 11/07/23 Rx #4 caps cholecalciferol (vitamin D3) 125 125 mcg PO DAILY #30 caps 07/24/22 11/07/23 Rx mcg (5,000 unit) capsule ascorbic acid (vitamin C) 1,000 mg 1 g PO DAILY 01/27/23 11/07/23 History capsule esomeprazole magnesium 20 mg 20 mg PO DAILY PRN Acid Reflux 01/27/23 11/07/23 History tablet,delayed release potassium gluconate 500 mg (83 mg) 500 mg PO DAILY 01/27/23 11/07/23 History tablet tamsulosin 0.4 mg capsule 0.4 mg PO DAILY #90 caps 01/27/23 11/07/23 Rx zinc acetate 25 mg (zinc) capsule 25 mg PO DAILY 01/27/23 11/07/23 History (Galzin) diltiazem HCl 180 mg 180 mg PO DAILY #90 caps 02/04/23 11/07/23 Rx capsule,extended release 24 hr apixaban 5 mg tablet (Eliquis) 5 mg PO BID #180 tabs 02/11/23 11/07/23 Rx melatonin 3 mg tablet 3 mg PO HS PRN Sleep 07/02/23 11/07/23 History sildenafil 100 mg tablet (Viagra) 100 mg PO DAILY PRN sexual 07/28/23 11/07/23 Rx activity #30 tabs nitroglycerin 0.4 mg sublingual 0.4 mg sublingual Q5M PRN Chest 08/27/23 11/07/23 Rx tablet Pain #75 tabs rosuvastatin 20 mg tablet 20 mg PO DAILY #90 tabs 09/09/23 11/07/23 Rx cyclobenzaprine 10 mg tablet 10 mg PO TID PRN muscle spasm #90 11/07/23 11/07/23 Rx tabs methylprednisolone 4 mg tablets in 4 mg PO DAILY #21 ea 11/07/23 11/07/23 Rx a dose pack oxycodone-acetaminophen 5 mg-325 1 tab PO TID PRN pain #21 tabs 11/07/23 11/07/23 Rx mg tablet hydrochlorothiazide 25 mg tablet 25 mg PO DAILY #90 tabs 12/08/23 Rx Past Med/Surg History Problem List (Updated 01/09/24 @ 01:09 by Delon Berger DO) Chest pain (Acute) Elevated troponin Neck pain Paroxysmal atrial fibrillation asymptomatic, controlled w/ meds, on eliquis daily Status post lumbar spine surgery for decompression of spinal cord Chronic anticoagulation Spinal stenosis, lumbar region with neurogenic claudication Spinal stenosis of lumbar region with radiculopathy Low back pain radiating to right leg Disc degeneration, lumbar Disc degeneration, lumbosacral Degenerative spondylolisthesis L4-5 Scoliosis of lumbar region due to degenerative disease of spine in adult Elevated troponin I level (Acute) entered into EMR and last edited 06/11/22 Left shoulder pain Sciatica Muscle cramps Rotator cuff arthropathy of left shoulder 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 SVT (supraventricular tachycardia) Junctional rhythm S/P TAVR (transcatheter aortic valve replacement) CAD (coronary artery disease) Dyslipidemia Hypertension Medical History GERD (gastroesophageal reflux disease) Disc degeneration, lumbar Chronic anticoagulation History of COVID-19 (2021) Spinal stenosis Junctional rhythm Hx of supraventricular tachycardia HTN (hypertension) Hx of chest pain Scoliosis of lumbar region due to degenerative disease of spine in adult Dyslipidemia CAD (coronary artery disease) Asthma (09/29/12) Paroxysmal atrial fibrillation Surgical History Hx of hernia repair Hx of cardiac catheterization Hx of colonoscopy Hx of umbilical hernia repair S/P TAVR (transcatheter aortic valve replacement) (01/2020) History of surgery on arm Family History Father Cancer Mother Asthma Coronary heart disease Diabetes Heart disease Hypertension Stroke Denies family history of Sudden Alzheimer disease Bipolar disorder Myocardial infarction Breast cancer Schizophrenia Lung cancer COPD (chronic obstructive pulmonary disease) Colorectal cancer Lung disease Social History Smoking Status: Former smoker Tobacco Type: Cigarettes Age Started Using Tobacco: 18; Age Quit Using Tobacco: 48; Smoking End Date: 1996; Second Hand Exposure: Yes; Do You Dip or Chew Tobacco: No; Hx Alcohol Use: Yes Alcohol type: beer Alcohol Intake Frequency: 4 or More x per/Week Hx Substance Use: No Preferred Language: Kyrgyz Communication Ability: Effective Visual Impairment: Limited Hearing Ability: Use of Hearing Aid Application Technical Designer Required: No Beliefs That Will Affect Care: None marital status: Current Living Situation: Spouse current occupational status: employed and retired 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 [employer] How many Children do You have: 2 How many Children do You have Comment: 2 sons Other Information That Helps Us Care for You: No Feels Safe at Home: Yes Safety Concerns: Feels Safe At This Time Childhood Exposure to Second-Hand Smoke: Yes (mother was a smoker.) Diet: regular caffeine: Yes (coffee ) during the past year weight has: remained stable Dental Care, Regularly: Yes Physical Activity Frequency: Daily Seatbelt Use: always Sunscreen Use: No Do you think of yourself as: straight/heterosexual Sexual Activity: has been sexually active within the last 12 months Gender Identity: Male Assistive Devices: None Review of Systems Review of Systems: As per above Physical Exam Physical Exam: Constitutional: well-appearing, no acute distress HEENT: NCAT, no conjunctival injection CV: regular rhythm, no murmur appreciated, extremities well-perfused, no LE edema Resp: CTABL, no wheezes/rales/rhonchi appreciated, no increased work of breathing GI: soft, nondistended, nontender MSK: no gross deformities appreciated Skin: warm, dry, no rash appreciated Neuro: alert, oriented, no focal neurologic deficit appreciated Results & Data Results & Data Vital Signs (Past 12 Hours) Vital Signs Temp Pulse Pulse Resp BP BP Pulse Ox 01/08/24 22:01 130/74 01/08/24 21:39 74 18 96 01/08/24 21:30 141/77 H 01/08/24 21:24 76 21 96 01/08/24 20:09 92 H 01/08/24 19:38 76 18 118/65 95 01/08/24 19:02 86 21 161/70 H 95 01/08/24 19:00 95 H 21 94 01/08/24 18:52 95 01/08/24 18:50 146/79 H 01/08/24 18:50 146/79 H 01/08/24 18:50 146/79 H 01/08/24 18:50 97 H 01/08/24 18:48 99 H 24 01/08/24 18:39 36.8 C 103 H 16 146/73 H 93 O2 Del Method 01/08/24 22:01 01/08/24 21:39 Room Air 01/08/24 21:30 01/08/24 21:24 Room Air 01/08/24 20:09 01/08/24 19:38 Room Air 01/08/24 19:02 Room Air 01/08/24 19:00 01/08/24 18:52 Room Air 01/08/24 18:50 01/08/24 18:50 01/08/24 18:50 01/08/24 18:50 01/08/24 18:48 01/08/24 18:39 Room Air Laboratory Results Laboratory Results WBC 7.04 K/ul (4.8-10.8) 01/09/24 05: RBC 4.36 M/uL (4.70-6.10) L 01/09/24 05:29 Hgb 13.6 g/dl (14.0-18.0) L 01/09/24 05:29 Hct 38.8 % (42.0-52.0) L 01/09/24 05:29 MCV 89.0 fL (80.0-100.0) 01/09/24 05:29 MCH 31.2 pg (25.0-34.0) 01/09/24 05: MCHC 35.1 g/dL (32.0-36.0) 01/09/24 05:29 RDW Std Deviation 43.8 fL (36.4-46.3) 01/09/24 05:29 RDW Coeff of Luh 13.4 % (11.5-14.5) 01/09/24 05:29 Plt Count 165 K/uL (130-400) 01/09/24 05: MPV 11.5 fL (9.4-12.4) 01/09/24 05: Immature Gran % (Auto) 0.3 % 01/09/24 05: Neut % (Auto) 56.2 % 01/09/24 05: Lymph % (Auto) 25.0 % 01/09/24 05:29 Williams % (Auto) 14.2 % 01/09/24 05: Eos % (Auto) 4.0 % 01/09/24 05:29 Baso % (Auto) 0.3 % 01/09/24 05: Neut # (Auto) 3.96 K/uL (1.40-6.50) 01/09/24 05: Lymph # (Auto) 1.76 K/uL (1.20-3.40) 01/09/24 05:29 Williams # (Auto) 1.00 K/uL (0.11-0.59) H 01/09/24 05: Eos # (Auto) 0.28 K/uL (0.00-0.50) 01/09/24 05:29 Baso # (Auto) 0.02 K/uL (0.00-0.20) 01/09/24 05: Immature Gran # (Auto) 0.02 K/uL (0.01-0.20) 01/09/24 05: PT 11.2 Seconds (9.0-12.0) 01/08/24 18:45 INR 1.0 (0.9-1.1) 01/08/24 18:45 D-Dimer 390 ug/L FEU (0-500) 01/08/24 23:11 Sodium 142 mmol/L (136-145) 01/09/24 05:29 Potassium 3.6 mmol/L (3.5-5.1) 01/09/24 05: Chloride 107 mmol/L (98-107) 01/09/24 05: Carbon Dioxide 29 mmol/L (21-32) 01/09/24 05:29 Anion Gap 6 (3-11) 01/09/24 05:29 BUN 19 mg/dl (6-23) 01/09/24 05:29 Creatinine 0.96 mg/dl (0.6-1.4) 01/09/24 05:29 Est Cr Clr Drug Dosing 61.7 ml/min 01/09/24 05:29 eGFR 83.46 01/09/24 05:29 BUN/Creatinine Ratio 19.8 (10-20) 01/09/24 05:29 Glucose 108 mg/dl (70-99(Fasting)) H 01/09/24 05:29 Calcium 8.7 mg/dl (8.6-10.3) 01/09/24 05:29 Magnesium 2.2 mg/dl (1.7-2.4) 01/08/24 20:31 Total Bilirubin 1.2 mg/dl (0.2-1.0) H 01/09/24 05:29 AST 16 U/L (13-39) 01/09/24 05:29 ALT 15 U/L (7-52) 01/09/24 05:29 Alkaline Phosphatase 72 U/L (34-104) 01/09/24 05:29 Troponin I High Sens 28.0 pg/ml (0-20) H 01/09/24 05:29 Total Protein 5.7 gm/dl (6.0-8.3) L 01/09/24 05:29 Albumin 3.6 gm/dl (3.4-5.0) 01/09/24 05:29 Globulin 2.1 gm/dl (2.5-4.0) L 01/09/24 05:29 Albumin/Globulin Ratio 1.7 (0.9-2) 01/09/24 05:29 Lipase 53 U/L (11-82) 01/08/24 18:45 Impressions Chest X-Ray 01/08/24 18:42 Chest radiograph, one view History: Chest pain Comparison: 07/21/2023 Findings: Single AP view of the chest performed. There is a new inferomedial right basilar opacity. There is an aortic root stent. No visualized pleural effusion. No pneumothorax. The cardiomediastinal silhouette is within normal limits. Normal pulmonary vascularity. No evidence for lymphadenopathy. No visualized bony or soft tissue abnormality. Impression: New right basilar opacity, which may represent infection or atelectasis Electronically signed by Kendrick De Leon 01-08-2024 7:40 PM Supervising Physician Co-Signing Physician Notes Patient seen and examined, chart reviewed, case discussed with Dr. De La Rosa and I agree with the assessment and plan as above. In brief, patient is a 73yo male with h/o PAF on Eliquis, SVT, non-obstructive CAD and bicuspid AV s/p TAVR presenting with chest pain x 2 episodes. Has had some decreased exercise tolerance over the last 2-3 months. Patient resting comfortably on exam +S1/S2, regular, no m/r/g Lungs CTA Abd soft, NT/ND Ext warm, well perfused without edema Labs and images reviewed Assessment/plan -Repeat troponin with AM labs. Patient with recent TTE in 08/2023 and stress echo in 08/2022 -Cardiology consultation appreciated -Remainder as above Resident Activity Tracking Resident Involvement: Resident Care Provided Care Provided: Adult Hospital Medicine (1) Chest pain Chest pain type: unspecified Qualified Code(s): R07.9 - Chest pain, unspecified
[2024-01-08] MEDS ORDERED: PANTOprazole 40 MG TAB PO PRN (23:49)
[2024-01-09] VITALS: TEMP 97.7
[2024-01-09] MEDS: APIXABAN 5 MG TABLET PO SCH (00:02)
[2024-01-09 00:07] LABS: D Dimer 390 ug/L FEU (0-500)
[2024-01-09 06:12] LABS: Basophils # (auto) 0.02 K/uL (0.00-0.20); Basophils % (auto) 0.3 %; Eosinophils # (auto) 0.28 K/uL (0.00-0.50); Hematocrit (blood only) 38.8 % (42.0-52.0); Hemoglobin 13.6 g/dl (14.0-18.0); Immature Granulocytes # (auto) 0.02 K/uL (0.01-0.20); Immature Granulocytes % (auto) 0.3 %; Lymphocytes # (auto) 1.76 K/uL (1.20-3.40); Mean Corpuscular Hemoglobin 31.2 pg (25.0-34.0); Mean Corpuscular Hgb Conc 35.1 g/dL (32.0-36.0); Mean Platelet Volume 11.5 fL (9.4-12.4); Monocytes % (auto) 14.2 %; Neutrophils # (auto) 3.96 K/uL (1.40-6.50); Neutrophils % (auto) 56.2 %; Platelet Count 165 K/uL (130-400); RDW Coefficient of Variation 13.4 % (11.5-14.5); RDW Standard Deviation 43.8 fL (36.4-46.3); Red Blood Count 4.36 M/uL (4.70-6.10); White Blood Count 7.04 K/ul (4.8-10.8)
[2024-01-09 06:33] LABS: Albumin Globulin Ratio 1.7 (0.9-2); Albumin Level 3.6 gm/dl (3.4-5.0); BUN Creatinine Ratio 19.8 (10-20); Bilirubin,Total 1.2 mg/dl (0.2-1.0); Calcium 8.7 mg/dl (8.6-10.3); Creatinine Clr Calc Pharmacy 61.7 ml/min; Globulin 2.1 gm/dl (2.5-4.0); Potassium 3.6 mmol/L (3.5-5.1); Total Protein 5.7 gm/dl (6.0-8.3)
--- NOTE | 2024-01-09 06:52 | Hospitalist Progress Note ---
Date of Service January 09, 2024 Assessment & Plan (1) Chest pain: Plan: (2) Elevated troponin: (3) Paroxysmal atrial fibrillation: (4) SVT (supraventricular tachycardia): Plan (1) Chest pain/Elevated troponin/CXR opacity - Troponin mildly elevated, 28.0 <-- 27.8/27.9 - EKG without acute ischemic changes - TTE from 08/2023 with EF 55-60%, mild LVH, mildly dilated aortic root - Stress Echo 08/2022 without significant ischemia - Trend troponin - monitor on telemetry - PE unlikely given symptomatology/has been taking Eliquis consistently, D- dimer, 390 (< 500) - CXR with right basilar opacity-> fever non-infectious/atelectasis given lack of infectious symptoms, no leukocytosis- consider treating for CAP if infectious symptoms evolve patient says 1 wk hx of prod cough - consult cardiology, appreciate reccomendations (2) Pneumonia-like Symptoms - procal, < 0.02; WBC, 7.0 <-- 11.4, improving w/out antibiotics - CXR (1 view) w/ r. basilar opacity - CXR (2 views), no definite consolidation to suggest pneumonia, linear r. basilar densities favor atelectasis (3) Paroxysmal atrial fibrillation - Rate controlled, continue diltiazem - continue Eliquis (4) SVT (supraventricular tachycardia) - noted history, has been seen by EP prior. Asymptomatic since starting diltiazem in 2020 Plan Chronic Stable: GERD: continue PPI HTN: continue HCTZ HLD: continue statin Diet: NPO at midnight pending cardiology evaluation, ?cath Code: Full VTE Prophylaxis: Eliquis Dispo: Tele Admission and Anticipated Discharge Date Admission Date: January 08, 2024 Subjective 73 year old male with a past medical history of Paroxysmal atrial fibrillation on Eliquis, SVT, Bicuspid aortic valve with stenosis s/p TAVR, Nonobstructive CAD, HTN, HLD presenting with chest pain. 2 episodes of chest pain today on Thanksgiving dinner. States pain was midsternal, sharp, did not radiate. Denies associated dyspnea, diaphoresis, nausea. Notes that over the past 2-3 months has gradually noticed increased dyspnea with exertion, especially when going up stairs in his house. Was given a dose of morphine upon arrival to the ED which relieved chest pain yesterday. Has had a cough for the past 1-2 weeks which he associates with phlegm/post nasal drip, but denies fever, chills, congestion. This morning patient felt some residual CP, 2/10, that has already resolved. Continues to have productive cough, SOB w/ exertion, coughing up phlegm (of a week). Review of Systems Constitutional: + fatigue; no fever and no chills Ear, Nose, Mouth, Throat: + post nasal drip; no nasal congestion, no nasal discharge and no sore throat Respiratory: + cough, + chest congestion, + dyspnea o n exertion and + sputum production Cardiovascular: + chest pain (2/10 cp resolved); no radi ating jaw, neck or arm pain and no palpitations Gastrointestinal: no abdominal pain, no nausea and no vomiting Physical Exam 2 Constitutional: WD/WN, vitals as above Respiratory: normal respiratory effort, + labored breathing, + cough and able to speak in complete sentences Auscultation: no diminished lung sounds, no crackles and no wheezes Cardiovascular: RRR, no murmur, no edema Extremities: normal capillary refill; no calf tenderness Gastrointestinal (Abdomen): normal bowel sounds, soft, nontender, no hepatosplenomegaly Psychiatric: A+Ox3, euthymic affect Results & Data Results & Data Vital Signs (Past 12 Hours) Vital Signs Temp Pulse Pulse Pulse Resp BP BP 01/09/24 03:29 79 01/09/24 03:27 36.5 C 73 18 139/70 01/09/24 00:07 01/08/24 23:54 36.5 C 65 18 136/65 01/08/24 23:41 82 01/08/24 23:29 75 18 131/77 01/08/24 23:15 70 18 131/71 01/08/24 22:30 78 120/75 01/08/24 22:01 130/74 01/08/24 21:39 74 18 01/08/24 21:30 141/77 H 01/08/24 21:24 76 21 01/08/24 20:09 92 H 01/08/24 19:38 76 18 118/65 01/08/24 19:02 86 21 161/70 H 01/08/24 19:00 95 H 21 01/08/24 18:52 01/08/24 18:50 146/79 H 01/08/24 18:50 146/79 H 01/08/24 18:50 146/79 H 01/08/24 18:50 97 H 01/08/24 18:48 99 H 24 Pulse Ox O2 Del Method 01/09/24 03:29 01/09/24 03:27 95 Room Air 01/09/24 00:07 Room Air 01/08/24 23:54 95 Room Air 01/08/24 23:41 01/08/24 23:29 95 Room Air 01/08/24 23:15 95 Room Air 01/08/24 22:30 94 Room Air 01/08/24 22:01 01/08/24 21:39 96 Room Air 01/08/24 21:30 01/08/24 21:24 96 Room Air 01/08/24 20:09 01/08/24 19:38 95 Room Air 01/08/24 19:02 95 Room Air 01/08/24 19:00 94 01/08/24 18:52 95 Room Air 01/08/24 18:50 01/08/24 18:50 01/08/24 18:50 01/08/24 18:50 01/08/24 18:48 Resident Activity Tracking Resident Involvement: Resident Care Provided Care Provided: Adult Hospital Medicine (1) Chest pain Chest pain type: unspecified Qualified Code(s): R07.9 - Chest pain, uns pecified
--- NOTE | 2024-01-09 07:09 | Billing Data ---
Date of Service January 08, 2024 Coding Level of Care Code 48863 INT INP/OBS CARE
[2024-01-09] MEDS: ROSUVASTATIN CALCIUM 20 MG TAB PO SCH (08:39)
[2024-01-09] MEDS: TAMSULOSIN HCL 0.4 MG CAP PO SCH (08:39)
[2024-01-09] MEDS: hydroCHLOROthiazide 25 MG TAB PO SCH (08:39)
[2024-01-09] MEDS: dilTIAZem HCL 180 MG CAPCR PO SCH (08:39)
[2024-01-09] MEDS ORDERED: POTASSIUM GLUCONATE PO SCH (09:00)
--- NOTE | 2024-01-09 10:52 | Cardiology Consultation ---
Date of Consultation January 09, 2024 Assessment & Plan (1) Chest pain: (2) PORTER (dyspnea on exertion): (3) Elevated troponin: (4) Paroxysmal atrial fibrillation: (5) SVT (supraventricular tachycardia): (6) S/P TAVR (transcatheter aortic valve replacement): Plan 1. Chest pain: His chest discomfort appears quite atypical for myocardial ischemia. The episodes of discomfort are sharp stabbing pains which are very brief in duration although they are clustered together. He does not have exertional chest discomfort although he does have exertional shortness of breath. 2. Dyspnea on exertion: This has been going on for some time but is getting progressively worse but is not associated with the chest discomfort. I am concerned that this could represent an abnormality such as progressive coronary disease and it should be evaluated with a stress test. I think that can be done as an outpatient. He does have an appoint with Dr. Peraza for early February 2024. 3. Elevated troponin: History opponent is minimally elevated without a particular trend in the same as his last evaluation, I do not believe this represents a cardiac event. 4. Atrial fibrillation: He carries a diagnosis of paroxysmal atrial fibrillation although he tells me he is in it all the time. He is in it here but the rate is controlled, it was a little faster on presentation but that could be anxiety. I would continue with rate control and anticoagulation. 5. SVT: If he has a reentrant SVT that cannot sustain during atrial fibrillation, I would not alter our approach. 6. Aortic valve replacement: Clinically this is working well. That can be evaluated with a stress echo which I will order. From my standpoint I think he can go home, I talked to him and his about that and he is agreeable. I will schedule an outpatient stress test and he knows that if his symptoms occur again he should come back to the emergency room. History of Present Illness Reason for Consultation: Chest pain, atrial fibrillation Attending Physician: Jessica Diaz, History of Present Illness This is a 73-year-old male who has a history of aortic stenosis for bicuspid aortic valve for which he had TAVR performed, nonobstructive coronary artery disease identified at catheterization on December 16, 2019 and a negative stress echo on September 25, 2021 as well as September 02, 2022. The TAVR was working appropriately at this last test. He also has a dilated aortic root which has not required intervention or further evaluation. He also has a history of SVT and has seen Dr. Jacobs, this has been captured on an event monitor and although catheter ablation is an option it was felt inadvisable when he was seen in 2020. He also carries a diagnosis of paroxysmal atrial fibrillation for which he is on diltiazem. He presents now with chest discomfort, evidently he had 2 episodes on January 08, 2024. He took nitroglycerin although this did not completely relieve the discomfort. He describes his chest discomfort as a momentary stabbing sensation in his epigastric area which would come and go for hours at a time. The 2 episodes he had January 07 occurred with a grouping of stabbing discomforts earlier and then another after eating Thanksgiving dinner. The actual symptoms do not have a long duration, although the last grouping he had lasted over 6 hours when he came into the emergency room. He has also noted dyspnea on exertion over the last several months, especially going up stairs to his house. This is not associated with the chest discomfort. He has been pain-free since presentation and administration of morphine in the emergency room. Evaluation here includes an electrocardiogram on presentation showing atrial fibrillation at 112 bpm and no acute changes. Troponin measurements were performed and they are flat, ranging from 24 on presentation to 28 this morning. Of note in June 2022 they ranged from 20-23. Allergies Allergy/AdvReac Type Severity Reaction Status Date / Time carisoprodol Allergy Severe Hypotension Verified 11/07/23 10:43 codeine Allergy Unknown ITCHY Verified 11/07/23 10:43 Home Medications Medication Instructions Recorded Confirmed Type amoxicillin 500 mg capsule 2,000 mg (4 x 500 mg) PO .COMPLEX 02/28/22 11/07/23 Rx #4 caps cholecalciferol (vitamin D3) 125 125 mcg PO DAILY #30 caps 07/24/22 11/07/23 Rx mcg (5,000 unit) capsule ascorbic acid (vitamin C) 1,000 mg 1 g PO DAILY 01/27/23 11/07/23 History capsule esomeprazole magnesium 20 mg 20 mg PO DAILY PRN Acid Reflux 01/27/23 11/07/23 History tablet,delayed release potassium gluconate 500 mg (83 mg) 500 mg PO DAILY 01/27/23 11/07/23 History tablet tamsulosin 0.4 mg capsule 0.4 mg PO DAILY #90 caps 01/27/23 11/07/23 Rx zinc acetate 25 mg (zinc) capsule 25 mg PO DAILY 01/27/23 11/07/23 History (Galzin) diltiazem HCl 180 mg 180 mg PO DAILY #90 caps 02/04/23 11/07/23 Rx capsule,extended release 24 hr apixaban 5 mg tablet (Eliquis) 5 mg PO BID #180 tabs 02/11/23 11/07/23 Rx melatonin 3 mg tablet 3 mg PO HS PRN Sleep 07/02/23 11/07/23 History sildenafil 100 mg tablet (Viagra) 100 mg PO DAILY PRN sexual 07/28/23 11/07/23 Rx activity #30 tabs nitroglycerin 0.4 mg sublingual 0.4 mg sublingual Q5M PRN Chest 08/27/23 11/07/23 Rx tablet Pain #75 tabs rosuvastatin 20 mg tablet 20 mg PO DAILY #90 tabs 09/09/23 11/07/23 Rx cyclobenzaprine 10 mg tablet 10 mg PO TID PRN muscle spasm #90 11/07/23 11/07/23 Rx tabs methylprednisolone 4 mg tablets in 4 mg PO DAILY #21 ea 11/07/23 11/07/23 Rx a dose pack oxycodone-acetaminophen 5 mg-325 1 tab PO TID PRN pain #21 tabs 11/07/23 11/07/23 Rx mg tablet hydrochlorothiazide 25 mg tablet 25 mg PO DAILY #90 tabs 12/08/23 Rx Patient History Medical History GERD (gastroesophageal reflux disease) controlled, stable per pt Disc degeneration, lumbar Chronic anticoagulation eliquis daily History of COVID-19 (2021) no hosp; resolved Spinal stenosis Junctional rhythm hx Hx of supraventricular tachycardia after TAVR procedure, no issues since HTN (hypertension) Hx of chest pain 06/2022- follows w/ Dr Peraza; denies recurrence or needing to take nitroglycerin Scoliosis of lumbar region due to degenerative disease of spine in adult Dyslipidemia CAD (coronary artery disease) non-obstructive Asthma (09/29/12) as a child Surgical History Hx of hernia repair "testicular" Hx of cardiac catheterization 2016 and 2019 [place], no stents placed Hx of colonoscopy Hx of umbilical hernia repair S/P TAVR (transcatheter aortic valve replacement) (01/2020) History of surgery on arm Right bicep tendon repair. Family History Father Cancer Mother Asthma Coronary heart disease Diabetes Heart disease Hypertension Stroke Denies family history of Sudden Alzheimer disease Bipolar disorder Myocardial infarction Breast cancer Schizophrenia Lung cancer COPD (chronic obstructive pulmonary disease) Colorectal cancer Lung disease Social History Smoking Status: Former smoker Tobacco Type: Cigarettes Age Started Using Tobacco: 18; Age Quit Using Tobacco: 48; Smoking End Date: 1996; Second Hand Exposure: Yes; Do You Dip or Chew Tobacco: No; Hx Alcohol Use: Yes Alcohol type: beer Alcohol Intake Frequency: 4 or More x per/Week Hx Substance Use: No Preferred Language: Wallisian Communication Ability: Effective Visual Impairment: Limited Hearing Ability: Use of Hearing Aid Reservations Agent Required: No Beliefs That Will Affect Care: None marital status: Current Living Situation: Spouse current occupational status: employed and retired 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 [employer] How many Children do You have: 2 How many Children do You have Comment: 2 sons Other Information That Helps Us Care for You: No Feels Safe at Home: Yes Safety Concerns: Feels Safe At This Time Childhood Exposure to Second-Hand Smoke: Yes (mother was a smoker.) Diet: regular caffeine: Yes (coffee ) during the past year weight has: remained stable Dental Care, Regularly: Yes Physical Activity Frequency: Daily Seatbelt Use: always Sunscreen Use: No Do you think of yourself as: straight/heterosexual Sexual Activity: has been sexually active within the last 12 months Gender Identity: Male Assistive Devices: Cane and Walker Review of Systems Review of Systems: All systems reviewed & are unremarkable except as noted in HPI & below Physical Exam Physical Exam: Constitutional: Alert, cooperative and in no distress. HEENT: Unremarkable Neck: No jugular venous distention, carotid pulses are normal and equal bilaterally without bruits. Pulmonary: Clear to auscultation bilaterally. Cardiac: Regular rhythm with no murmur, gallop or rub. Abdomen: Soft, nontender with normal bowel sounds. Extremities: No edema. Distal pulses intact. Neurologic: No focal findings. Gait is steady. Skin: No rash, ecchymoses or petechiae. Results & Data Vital Signs (Past 12 Hours) Vital Signs Temp Pulse Pulse Pulse Resp BP BP 01/09/24 07:47 36.5 C 72 18 137/70 01/09/24 07:20 01/09/24 05:54 74 01/09/24 03:29 79 01/09/24 03:27 36.5 C 73 18 139/70 01/09/24 00:07 01/08/24 23:54 36.5 C 65 18 136/65 01/08/24 23:41 82 01/08/24 23:29 75 18 131/77 01/08/24 23:15 70 18 131/71 Pulse Ox O2 Del Method 01/09/24 07:47 95 Room Air 01/09/24 07:20 Room Air 01/09/24 05:54 01/09/24 03:29 01/09/24 03:27 95 Room Air 01/09/24 00:07 Room Air 01/08/24 23:54 95 Room Air 01/08/24 23:41 01/08/24 23:29 95 Room Air 01/08/24 23:15 95 Room Air Laboratory Results Cardiac Enzymes 01/08/24 01/08/24 01/08/24 Range/Units 18:45 20:31 20:31 AST 22 (13-39) U/L Troponin I High Sens 23.7 H 27.9 H 27.8 H (0-20) pg/ml 01/09/24 Range/Units 05:29 AST 16 (13-39) U/L Troponin I High Sens 28.0 H (0-20) pg/ml Coagulation 01/08/24 Range/Units 18:45 PT 11.2 (9.0-12.0) Seconds CBC 01/08/24 01/09/24 Range/Units 18:45 05:29 WBC 11.37 H 7.04 (4.8-10.8) K/ul RBC 4.85 4.36 L (4.70-6.10) M/uL Hgb 15.1 13.6 L (14.0-18.0) g/dl Hct 41.8 L 38.8 L (42.0-52.0) % Plt Count 198 165 (130-400) K/uL Neut # (Auto) 8.41 H 3.96 (1.40-6.50) K/uL Lymph # (Auto) 1.56 1.76 (1.20-3.40) K/uL [place] # (Auto) 1.14 H 1.00 H (0.11-0.59) K/uL Eos # (Auto) 0.19 0.28 (0.00-0.50) K/uL Baso # (Auto) 0.03 0.02 (0.00-0.20) K/uL Comprehensive Metabolic Panel 01/08/24 01/09/24 Range/Units 18:45 05:29 Sodium 141 142 (136-145) mmol/L Potassium 3.5 3.6 (3.5-5.1) mmol/L Chloride 103 107 (98-107) mmol/L Carbon Dioxide 29 29 (21-32) mmol/L BUN 20 19 (6-23) mg/dl Creatinine 1.10 0.96 (0.6-1.4) mg/dl Glucose 143 H 108 H (70-99(Fasting)) mg/dl Calcium 9.8 8.7 (8.6-10.3) mg/dl AST 22 16 (13-39) U/L ALT 19 15 (7-52) U/L Alkaline Phosphatase 83 72 (34-104) U/L Total Protein 6.8 5.7 L (6.0-8.3) gm/dl Albumin 4.5 3.6 (3.4-5.0) gm/dl Intake and Output 01/08/24 01/09/24 01/09/24 22:59 06:59 14:59 Other: Other Intake Source npo # Unmeasured Voids 1 Weight 73.6 kg 73.9 kg Weight Measurement Method Chair Scale Standing Scale Diagnostic Findings Telemetry: Atrial fibrillation with a controlled heart rate PG Care Time/CCT Total # of Minutes Spent Total Time Spent with Patient: Total time spent is greater than 50% in coordination of care (as documented) at patient's floor/unit and/or counseling patient: Coding Level of Care Code 70617 INT INP/OBS CARE 3/75MIN Diagnoses Chest pain R07.9 PORTER (dyspnea on exertion) R06.09 Elevated troponin R79.89 Paroxysmal atrial fibrillation I48.0 SVT (supraventricular tachycardia) I47.1 S/P TAVR (transcatheter aortic valve replacement) Z95.2
--- NOTE | 2024-01-09 11:44 | XRay Report ---
XR chest 2V PA/lateral CLINICAL HISTORY: pneumonia Sx, minor consolidation on 1-view CXR COMPARISON STUDY: Chest CT June 11, 2022. Chest radiograph January 08, 2024. FINDINGS: A prosthetic aortic valve is in place. There is no pneumothorax or pleural effusion. Modera te elevation of the right hemidiaphragm is present. Right basilar densities are predominantly linear in configuration. No consolidation is identified to suggest pneumonia. There is no evidence for pulmo nary edema. Cardiomediastinal silhouette is stable. IMPRESSION: 1. Linear right basilar densities favor atelectasis. No definite consolidation to suggest pneumonia. 2. Moderate elevation of the right hemidiaphragm. ACT 112: Negative or not required by law. Electronically signed by: Kade Poole M.D. 01/09/2024 11:42 AM
[2024-01-09 16:00] VITALS: O2SAT 94
[2024-01-09 16:23] VITALS: BP 125/65; PULSE 70
--- NOTE | 2024-01-09 16:23 | Discharge Summary ---
Date of Service January 09, 2024 Admission HPI Per Admitting Provider 73 year old male with a past medical history of Paroxysmal atrial fibrillation on Eliquis, SVT, Bicuspid aortic valve with stenosis s/p TAVR, Nonobstructive CAD, HTN, HLD presenting with chest pain. States that he had 2 episodes of chest pain today. First at about 1300, took nitro- didn't completely go away but improved significantly. This evening while he was eating Thanksgiving dinner at about 1700 had another episode which prompted him to come in. States pain was midsternal, sharp, did not radiate. Denies associated dyspnea, diaphoresis, nausea. Notes that over the past 2-3 months has gradually noticed increased dyspnea with exertion, especially when going up stairs in his house. Noted that on his way to ED, he had a slight headache. Was given a dose of morphine upon arrival to the ED which relieved both chest pain and headache and neither have returned. Denies recent illness. Has had a cough for the past 1-2 weeks which he associates with phlegm/post nasal drip, but denies fever, chills, congestion. ED Course Significant For: CBC, CMP with TBili= 1.3, otherwise unremarkable. Trop= 27.8-> 27.9. CXR with right basilar opacity. EKG with afib- HR= 112, incomplete RBBB, nonspecific ST changes- no acute ischemic changes. S/p 324mg asp, 4mg Zofran, 4mg morphine Admission Exam Per Admitting Provider Constitutional: well-appearing, no acute distress HEENT: NCAT, no conjunctival injection CV: regular rhythm, no murmur appreciated, extremities well-perfused, no LE edema Resp: CTABL, no wheezes/rales/rhonchi appreciated, no increased work of breathing GI: soft, nondistended, nontender MSK: no gross deformities appreciated Skin: warm, dry, no rash appreciated Neuro: alert, oriented, no focal neurologic deficit appreciated Principal Diagnosis acute coronary syndrome, chest pain Discharge Exam Constitutional WD/WN, vitals as above Respiratory normal respiratory effort, + labored breathing, + cough and able to speak in complete sentences Auscultation: no diminished lung sounds, no crackles and no wheezes Cardiovascular RRR, no murmur, no edema Extremities: normal capillary refill; no calf tenderness Gastrointestinal (Abdomen) normal bowel sounds, soft, nontender, no hepatosplenomegaly Psychiatric A+Ox3, euthymic affect Discharge Data Allergies Allergy/AdvReac Type Severity Reaction Status Date / Time carisoprodol Allergy Severe Hypotension Verified 11/07/23 10:43 codeine Allergy Unknown ITCHY Verified 11/07/23 10:43 Consultations 01/08/24 21:40 ED Decision to Admit Stat 01/09/24 06:00 Consult Cardiology Routine Hospital Course (1) Chest pain: (2) Elevated troponin: (3) Paroxysmal atrial fibrillation: (4) SVT (supraventricular tachycardia): Plan (1) Chest pain/Elevated troponin/CXR opacity - Troponin mildly elevated, 28.0 <-- 27.8/27.9 - EKG without acute ischemic changes - TTE from 08/2023 with EF 55-60%, mild LVH, mildly dilated aortic root - Stress Echo 08/2022 without significant ischemia - Trend troponin - monitor on telemetry - PE unlikely given symptomatology/has been taking Eliquis consistently, D- dimer, 390 (< 500) - CXR with right basilar opacity-> fever non-infectious/atelectasis given lack of infectious symptoms, no leukocytosis- consider treating for CAP if infectious symptoms evolve patient says 1 wk hx of prod cough Echocardiogram 1. Normal LV size, EF 55-60%. No regional wall motion abnormalities. Mild concentric LV hypertrophy. 2. TAVR w/ acceptable transvalvular gradient and mild perivalvular leak. 3. Mildly dilated aortic root of 4.3 cm. - consult cardiology, appreciate recommendations: - discharge w/ outpatient stress echo scheduled by Cardiology - Cardiology thinking this is likely PORTER, possibly due to progressive coronary disease - already has scheduled F/U appt w/ Cardiology in February (2) Pneumonia-like Symptoms - procal, < 0.02; WBC, 7.0 <-- 11.4, improving w/out antibiotics - CXR (1 view) w/ r. basilar opacity - CXR (2 views), no definite consolidation to suggest pneumonia, linear r. basilar densities favor atelectasis (3) Paroxysmal atrial fibrillation - Rate controlled, continue diltiazem - continue Eliquis (4) SVT (supraventricular tachycardia) - noted history, has been seen by EP prior. Asymptomatic since starting diltiazem in 2020 Plan Chronic Stable: GERD: continue PPI HTN: continue HCTZ HLD: continue statin Total Time Total Time Spent Total Time Spent (In Minutes): see attending attestation Discharge Plan Discharge Items Patient Disposition: Home - Self-Care Reason For Visit: CHEST PAIN Discharge Diagnosis: acute coronary syndrome, chest pain Activity: Resume your previous activity Non-emergency contact: Primary Care Provider and Kiln Door Repairer Call non-emergency contact if: you have any medication questions and your symptoms worsen Follow-up/Referrals: Noman Victor, [Primary Care Provider] - Diet: Heart Healthy Addtl Attending Provider Instructions: You were admitted to the hospital for chest pain. You were treated with home meds, nitroglycerin, morphine. A discharge summary will be sent to your primary care physician to ensure continuity of care. Please bring this discharge summary with you to your next office appointment so that your provider can review it at that time. Follow-up appointments: We have requested a follow-up appointment with your primary care physician within one week of discharge and your real estate sales manager will schedule some upcoming procedures. Please call their office if you do not hear from them. Keep all your follow-up appointments as already scheduled, including the February appt with the real estate sales manager. If you cannot make an appointment, notify your provider. Medications: Your medication list has been reviewed and reconciled upon discharge to ensure accuracy and continuity of care. An updated list of all your medications is included with your hospital discharge paperwork. Please review this list closely, and make note of any changes. Take your medications as instructed; do not skip a dose of your medicines. Make sure all of your doctors know every medicine you are taking (including rygf-mff-[id number] medicines, vitamins, and supplements). Call your primary care provider before taking any new medicines (including [id number] medicines, vitamins, and supplements), because some of these may interact with your current medications, or may make your symptoms worse. Tell your primary care provider if you cannot afford your medications. CONTACT YOUR PRIMARY CARE PROVIDER if you experience any of the following: shortness of breath at rest chest pain, jaw/neck/arm/shoulder pain, nausea, vomiting Difficulty following your treatment plan, or difficulty taking medications CALL 911 OR GO TO THE EMERGENCY DEPARTMENT if you experience any of the following: Sudden, severe abdominal pain or nausea/vomiting Severe chest pain, or chest pain that radiates (moves) to your jaw or arm Sudden, severe shortness of breath or difficulty breathing Thank you for allowing us to participate in your care Pending Studies at Discharge: No Stand-Alone Forms: My [facility], Smoking Cessation Medications and DC Order Prescriptions: Continued amoxicillin 500 mg capsule 2,000 mg PO .COMPLEX Qty: 4 3RF Rx Instructions: 2,000 mg orally 30-60 minutes prior to dental procedure; diltiazem HCl 180 mg capsule,extended release 24hr 180 mg PO DAILY Qty: 90 3RF Eliquis 5 mg tablet 5 mg PO BID Qty: 180 3RF Hold Instructions: Resume on 08/13/23. Start with evening dose. nitroglycerin 0.4 mg tablet, sublingual 0.4 mg SL Q5M PRN (Reason: Chest Pain) Qty: 75 3RF rosuvastatin 20 mg tablet 20 mg PO DAILY Qty: 90 3RF hydrochlorothiazide 25 mg tablet 25 mg PO DAILY Qty: 90 3RF potassium gluconate 500 mg (83 mg) tablet 500 mg PO DAILY esomeprazole magnesium 20 mg tablet,delayed release (DR/EC) 20 mg PO DAILY PRN (Reason: Acid Reflux) Galzin 25 mg (zinc) capsule 25 mg PO DAILY ascorbic acid (vitamin C) 1,000 mg capsule 1 g PO DAILY tamsulosin 0.4 mg capsule 0.4 mg PO DAILY Qty: 90 3RF cholecalciferol (vitamin D3) 125 mcg (5,000 unit) capsule 125 mcg PO DAILY Qty: 30 0RF Rx Instructions: alternate 5000 and 10,000IU QOD sildenafil [Viagra] 100 mg tablet 100 mg PO DAILY PRN (Reason: sexual activity) Qty: 30 5RF Rx Instructions: administer 30 minutes to 4 hours before activity methylprednisolone 4 mg tablets,dose pack 4 mg PO DAILY Qty: 21 0RF Rx Instructions: Follow pack instructions cyclobenzaprine 10 mg tablet 10 mg PO TID PRN (Reason: muscle spasm) Qty: 90 2RF oxycodone-acetaminophen 5-325 mg tablet 1 tab PO TID PRN (Reason: pain) Qty: 21 0RF melatonin 3 mg Tablet 3 mg PO HS PRN (Reason: Sleep) Discharge Orders: Discharge Order (Routine); Ordered 01/09/24 Ordered By: Kendrick Diaz Admission Data Admit Date/Time: 01/08/24 22:15 Attending Provider: Jessica Diaz Admit Provider: Padmaja De La Rosa Primary Care Provider: Noman Victor Other Providers: Ford Marte; Matilda Horne Other Interventions: Discharge Summary Assessment (RN) Last Done: 01/09/24 16:21 Supervising Physician Co-Signing Physician Notes I personally examined the patient and verified [place] points of history and exam, discussed case, and agree with decision making and plan documented by Dr. Diaz. Patient is a 73-year-old male on admission for evaluation of chest pain. ACS workup started, patient evaluated by cardiology, mildly elevated troponin which trended down. Patient recommended to complete outpatient stress test and continue rate control and anticoagulation for atrial fibrillation. Patient is agreeable, has follow-up scheduled with cardiology and PCP. Patient appears comfortable on exam, lungs clear b/l to auscultation, regular r ate and rhythm, no acute distress, no LE edema.
--- NOTE | 2024-01-10 07:29 | Electrocardiogram Report ---
Test Reason : Blood Pressure : */* mmHG Vent. Rate : 112 BPM Atrial Rate : * BPM P-R Int : * ms QRS Dur : 92 ms QT Int : 314 ms P-R-T Axes : * -32 71 degrees QTcB Int : 428 ms Atrial fibrillation with rapid ventricular response with premature ventricular or aberrantly conducte d complexes Left axis deviation Incomplete right bundle branch block Nonspecific ST abnormality Abnormal ECG When compared with ECG of 21-Jul-2023 15:19, Atrial fibrillation has replaced Sinus rhythm Vent. rate has increased by 48 bpm Confirmed by Ford Marte ([id number]) on 01/10/2024 7:28:38 AM Referred By: REFERRED SELF Confirmed By: Ford Marte
== END 2024-01-09 17:01 | disposition home or self-care (01) | DRG 311 ==
LOC: ED 18:38 → SUATTDRO 22:15 → 2N 22:15